=== PATIENT | female | born 1950 | race Caucasian/White ===

== ENCOUNTER 2021-05-25 14:38 | Emergency (ER) | payer MEDICARE, SELFPAY ==
[2021-05-25 14:41] VITALS: BP 131/71; PULSE 84; RESP 16; TEMP 37.2; O2SAT 94
--- NOTE | 2021-05-25 14:54 | RAD_ITS ---
STUDY: X-RAY CHEST REASON FOR EXAM: Female, 70 years old. Cough, shortness of breath and fever. TECHNIQUE: Single AP portable view of the chest. COMPARISON: None. FINDINGS: EKG electrodes are seen. Hyperinflation. Focal infiltrate is seen in the lateral aspect of the left lower lobe. There is no demonstrated pleural abnormality. Normal size heart. Normal mediastinum and galen. Normal visualized pulmonary arteries. There is atherosclerotic tortuosity of the aortic arch and descending thoracic aorta. There are diffuse degenerative changes of the visualized thoracic spine. Normal visualized ribs, clavicles, and shoulders. There is no demonstrated abnormality of the visualized soft tissue structures of the upper abdomen. RAD/Chest 1 View (Portable) IMPRESSION: Focal infiltrate is seen in the lateral aspect of the left lower lobe. Electronically Signed: Jake Gould MD at 15:07 EST , Service support ,
[2021-05-25 14:59] VITALS: O2SAT 94
--- NOTE | 2021-05-25 15:30 | EDS_ITS ---
HPI History of Present Illness Chief Complaint: Cough Detail of Chief Complaint: Cough Informant: patient Narrative Narrative: Patient presents to the emergency department complaint of a cough that started 8 days ago. Patient complains of some shortness of breath with ambulation. Patient has history of asthma and has been using her inhaler. She denies any chest pain. She denies any Covid exposures. Patient has not been vaccinated against COVID-19. She denies recent travel or surgery. She has had fever up to 101 today. She denies loss of taste or smell. She denies body aches. She denies vomiting or diarrhea. [facility] Medical History (Updated 05/25/21 @ 15:[address] Ramin Evangelista, ) Asthma Home Medications benzonatate 200 mg PO TID PRN #20 cap 05/25/21 [Rx Last Taken Unknown] prednisone 20 mg PO BID #10 tab 05/25/21 [Rx Last Taken Unknown] Allergy/AdvReac Type Severity Reaction Status Date / Time cortisone AdvReac NEEDS Verified 05/25/21 14:43 FOLLOW-UP Social History Smoking Status: Never smoker ROS ROS ED Constitutional Constitutional ED: Reports systems reviewed and no addt'l complaints, except as documented and fever(s); Denies body ache(s), change in weight or chills Eyes Eyes: Denies acute decrease in peripheral vision, change in vision, double vision or loss of vision ENT ENT ED: Reports none; Denies ear pain, lip swelling, loss taste/smell, neck pain, otalgia or sore throat Cardiovascular Cardiovascular: Reports none; Denies abdominal pain, chest pain with activity, leg edema, lightheadedness, palpitations, rapid heart rate or syncope Respiratory/Chest Respiratory/Chest: Reports none, cough and dyspnea; Denies change in mental status, dry cough, hemoptysis, shortness of breath at rest or shortness of breath with exertion Gastrointestinal Gastrointestinal: Reports none; Denies abdominal pain, change in stool character, diarrhea, hematemesis, hematochezia, melena, rectal bleeding or vomiting Genitourinary Genitourinary ED: Reports none; Denies abdominal discomfort, anuria, dysuria, genital pain or polyuria Musculoskeletal Musculoskeletal: Reports none; Denies arthralgias, back pain, difficulty walking, extremity pain, muscle weakness or myalgias Integumentary Reports none; Denies abscess or rash Neurologic Neurologic: Reports none; Denies abnormal gait, confusion, focal weakness, frequent falls, headache(s), loss of vision, numbness, paresthesias, radicular pain, vertigo or weakness Psychiatric Psychiatric: Reports systems reviewed and no addt'l complaints, except as documented and none; Denies behavioral changes, confusion, difficulty concentrating, hallucinations, suicidal ideation, tactile hallucinations or visual hallucinations Endocrine Endocrinology: Denies none, cold intolerance, excessive sweating, fatigue or heat intolerance Hematologic/Lymphatic Hematologic/Lymphatic: Reports none; Denies anemia, easy bleeding or easy bruising Allergic/Immunologic Allergic/Immunologic ED: Denies as per HPI, none, lip swelling, mouth swelling, throat swelling, tongue swelling or hives EXAM Physical Exam Const Vital Signs: 05/25/21 14:41 05/25/21 14:59 Temperature 99.0 F Temperature Source Temporal Pulse Rate 84 Respiratory Rate 16 Respiratory Effort Normal Non-Labored Respiratory Depth Normal Respiratory Pattern Normal Blood Pressure 131/71 H Blood Pressure Mean 91 Pulse Ox 94 Oxygen Delivery Method Room Air Room Air Positive well nourished and well developed General Appearance ED: well developed and NAD HEENT Reports TM's clear and moist mucous membranes normocephalic and atraumatic; Negative for trauma or tenderness Tympanic Membrane ED: Yes TM's clear Eyes PERRL and EOMs intact bilaterally General Eye ED: Negative for pale conjunctiva or scleral icterus Neck no lymphadenopathy, supple and no JVD General: Negative for tenderness Chest Wall inspection of chest normal and palpation of chest normal Chest: Negative for tenderness Resp normal respiratory effort and clear to auscultation bilaterally Resp Narrative: Faint expiratory wheezes bilaterally. No extensor muscles or retractions. No conversational dyspnea. Effort and Inspection: Negative for respiratory distress or pain with movement Auscultation: wheezes; Negative for rhonchi or diminished lung sounds Cardio regular rate, regular rhythm, S1 normal heart sound, S2 normal heart sound and n o murmurs Peripheral Pulses: pulses 2+ throughout GI normal to inspection, nondistended, normoactive bowel sounds, soft to palpation, non-tender, non-distended and no masses Back/Spine no CVA tenderness and no thoracic nor lumbar tenderness Extremity normal to inspection General Extremety ED: Negative for edema General Extremity: Negative for edema Neuro oriented x3, CN's II-XII intact bilaterally, no sensory deficits noted and gait normal Sensorium / Orientation: awake, alert, oriented to person, oriented to place and oriented to time Motor Exam: strength 5/5 throughout and strength abnormal Psych mental status grossly normal Skin no rashes or lesions noted and no wounds MDM MDM MDM Narrative Medical decision making narrative: Patient has COVID-19. Her chest x-ray showed focal infiltrate in the left lower lobe and I suspect this is likely Covid related. Patient has stable vital signs otherwise and is in no respiratory distress. I do not feel she needs any other diagnostics at this time. Patient will be given a prescription for Tessalon Perles as well as prednisone to help with wheezing related to her asthma. I do not feel antibiotics are indicated. Patient will not be a monoclonal antibody infusion candidate given that by next Friday she will be past the 10-day kong. Patient will be ambulated in the department to make sure her O2 sat does not drop and I feel she can safely be discharged home. Patient will be advised to return if increasing shortness of breath or condition should worsen anyway. Lab Data Attestation: I reviewed the patient's lab results. Radiography Diagnostic Testing: Clinical Impression(s) from Imaging Studies Chest X-Ray 05/25/21 14:54 IMPRESSION: Focal infiltrate is seen in the lateral aspect of the left lower lobe. Electronically Signed: Jake Gould MD at 15:07 EST , Service support , Discharge Plan Triage Chief Complaint: Cough ED Provider: Ramin Evangelista Dx/Rx/DC Orders Clinical Impression: COVID-19 Instructions: Caring for Someone Who Has COVID-19 Prescriptions: New benzonatate 200 mg capsule 200 mg PO TID PRN (Reason: cough) Qty: 20 RF: 0 prednisone 20 mg tablet 20 mg PO BID Qty: 10 RF: 0 Primary Care Provider: Ken Quarles Referrals: Ken Quarles MD [Primary Care Provider] - 5-7 Days Disposition Disposition: Home, Self Care
[2021-05-25 15:41] VITALS: O2SAT 94
== END 2021-05-25 16:04 | disposition home or self-care (01) ==
LOC: ED 16:04
PROVIDERS: Emergency Provider Emergency Medicine; PCP Internal Medicine
DX: U07.1 COVID-19 (principal); J45.909 Unspecified asthma, uncomplicated
CPT/HCPCS: 71045; 87426; 99282; A4216

== ENCOUNTER 2021-05-27 12:19 | Emergency (ER) | payer MEDICARE, SELFPAY ==
[2021-05-27] VITALS (7 sets, daily range): BP systolic 140–154; BP diastolic 70–78; PULSE 53–72; RESP 15–24; TEMP 36; O2SAT 86–97; BMI 29.0
--- NOTE | 2021-05-27 12:36 | RAD_ITS ---
STUDY: X-RAY CHEST REASON FOR EXAM: Female, 70 years old. chest pain day 10 Covid chest pressure TECHNIQUE: Frontal portable view of the chest COMPARISON: 25 May 2021 FINDINGS: There are scattered low density predominantly peripheral opacities. There is no pneumothorax, pulmonary edema or cardiomegaly. Lungs are moderately hyperinflated. RAD/Chest 1 View (Portable) IMPRESSION: Worsening Covid pneumonia. Emphysema. Electronically Signed: Bria Zamora MD at 13:53 EST Tel , Service support ,
--- NOTE | 2021-05-27 12:36 | EKG12_ITS ---
Test Reason : CP Blood Pressure : / mmHG Vent. Rate : 064 BPM Atrial Rate : 064 BPM P-R Int : 138 ms QRS Dur : 086 ms QT Int : 380 ms P-R-T Axes : 052 055 031 degrees QTc Int : 392 ms Normal sinus rhythm Nonspecific T wave abnormality Confirmed by MENDOZA JACKMAN, BHUPENDRA ([id number]), web content editor ZAHIRA CONDON ([id number]) on 05/30/2021 11:11:58 AM Referred By: JOHN Confirmed By:BHUPENDRA DONALDSON MD
[2021-05-27 13:10] LABS: Absolute Lymphocyte Count 0.71 X10^3/uL (0.83-4.51); Absolute Neutrophil Count 8.1 X10^3/uL (2.0-7.7); Basophil# 0.02 X10^3/uL; Basophil% 0.2 % (0-1); Hematocrit 40.5 % (37-47); Hemoglobin 13.3 g/dL (12.0-15.0); Lymphocyte # 0.71 X10^3/ul (0.83-4.51); Lymphocyte % 7.3 % (19-41); Mean Corp Hgb Conc 32.8 g/dL (32-36); Mean Corpuscular Hgb 29.7 pg (27.0-32.0); Mean Corpuscular Volume 90.4 fL (81-99); Mean Platelet Vol. 9.2 fl (6.2-12.0); Monocyte# 0.74 X10^3/uL; Monocyte% 7.6 % (0-10); NRBC Flagged by Analyzer 0 % (0-5); Neutrophil # 8.11 X10^3/uL (2.7-7.7); Neutrophil % 83.4 % (47-70); Platelet Count 241 K/mm3 (150-450); RBC Distribution Width CV 12.2 % (11.6-14.6); RBC Distribution Width SD 40.3 fl (35.1-43.9); Red Blood Count 4.48 M/mm3 (4.2-5.4); White Blood Count 9.7 K/mm3 (4.4-11.0)
[2021-05-27 13:14] LABS: International Normalized Ratio 1.1; Prothrombin Time (Protime)PT. 13.3 SECONDS (11.7-14.9)
[2021-05-27 13:17] LABS: Anion Gap 6 (5-15); BUN 17 mg/dL (7-18); BUN/Creat Ratio 20.4 RATIO (10-20); Calcium,Total 9.3 mg/dL (8.5-10.1); Chloride 108 mmol/L (98-107); Creatinine, Serum 0.83 mg/dL (0.55-1.02); EST Glomerular Filtration Rate 72 mL/min (>60); Est Glom Filt Rate - Afr Amer 87 mL/min (>60); Glucose 120 mg/dL (74-106); Potassium 3.5 mmol/L (3.5-5.1); Sodium Level 142 mmol/L (136-145); Troponin-I HS 6 pg/mL (3.0-54.0)
--- NOTE | 2021-05-27 13:53 | NURSING ---
NO OLD EKGS
--- NOTE | 2021-05-27 14:06 | EDS_ITS ---
HPI History of Present Illness Chief Complaint: Shortness of Breath Detail of Chief Complaint: Shortness of breath Informant: patient Narrative Narrative: Patient presents to the emergency department with complaint of shortness of breath that has been worsening over the last several days. Patient was seen by myself in the emergency department 2 days ago and diagnosed with COVID-19. Patient's had symptoms for about 10 days. Patient was started on prednisone 2 days ago. Patient states that she is been monitoring her O2 sat at home and at night at times dropped down to 85%. She complains of worsening shortness of breath and fatigue. She had a dry cough. No fevers. She denies history of PE or DVT. She does describe some pain in her chest intermittently with deep breath. Patient has not been vaccinated against COVID-19. [facility] Medical History (Updated 05/27/21 @ 16:[address] Ramin Evangelista, ) Asthma BiPAP (biphasic positive airway pressure) dependence Chronic cystitis Depression GERD (gastroesophageal reflux disease) Hypertension Non-smoker Sleep apnea Home Medications benzonatate 200 mg PO TID PRN #20 cap 05/25/21 [Rx Last Taken Unknown] prednisone 20 mg PO BID #10 tab 05/25/21 [Rx Last Taken Unknown] dexamethasone [Decadron] 6 mg PO DAILY #3 tab 05/27/21 [Rx Last Taken Unknown] Allergy/AdvReac Type Severity Reaction Status Date / Time No Known Allergies Allergy Verified 05/27/21 12:24 Surgical History (Updated 05/27/21 @ 13:47 by Aimee Guzman) History of cholecystectomy Social History Smoking Status: Never smoker [facility] ED Constitutional Constitutional ED: Reports systems reviewed and no addt'l complaints, except as documented; Denies body ache(s), change in weight or chills Eyes Eyes: Denies acute decrease in peripheral vision, change in vision, double vision or loss of vision ENT ENT ED: Reports none; Denies ear pain, lip swelling, loss taste/smell, neck pain, otalgia or sore throat Cardiovascular Cardiovascular: Reports none and chest pain; Denies abdominal pain, chest pain with activity, leg edema, lightheadedness, palpitations, rapid heart rate or syncope Respiratory/Chest Respiratory/Chest: Reports none, cough and dyspnea; Denies change in mental status, dry cough, hemoptysis, shortness of breath at rest or shortness of breath with exertion Gastrointestinal Gastrointestinal: Reports none; Denies abdominal pain, change in stool character, diarrhea, hematemesis, hematochezia, melena, rectal bleeding or vomiting Genitourinary Genitourinary ED: Reports none; Denies abdominal discomfort, anuria, dysuria, genital pain or polyuria Musculoskeletal Musculoskeletal: Reports none and myalgias; Denies arthralgias, back pain, difficulty walking, extremity pain or muscle weakness Integumentary Reports none; Denies abscess or rash Neurologic Neurologic: Reports none; Denies abnormal gait, confusion, focal weakness, frequent falls, headache(s), loss of vision, numbness, paresthesias, radicular pain, vertigo or weakness Psychiatric Psychiatric: Reports systems reviewed and no addt'l complaints, except as documented and none; Denies behavioral changes, confusion, difficulty concentrating, hallucinations, suicidal ideation, tactile hallucinations or visual hallucinations Endocrine Endocrinology: Denies none, cold intolerance, excessive sweating, fatigue or heat intolerance Hematologic/Lymphatic Hematologic/Lymphatic: Reports none; Denies anemia, easy bleeding or easy bruising Allergic/Immunologic Allergic/Immunologic ED: Denies as per HPI, none, lip swelling, mouth swelling, throat swelling, tongue swelling or hives EXAM Physical Exam Const Vital Signs: 05/27/21 12:20 05/27/21 13:42 05/27/21 13:45 Temperature 96.8 F L Temperature Source Temporal Pulse Rate 72 62 60 Respiratory Rate 20 H 15 17 Respiratory Effort Blood Pressure 154/78 H 150/70 H 145/73 H Blood Pressure Mean 103 96 97 Pulse Ox 93 96 93 Oxygen Delivery Method Room Air Room Air Room Air Oxygen Flow Rate (L/min) 05/27/21 13:49 05/27/21 15:15 05/27/21 16:12 Temperature Temperature Source Pulse Rate 60 Respiratory Rate 19 H Respiratory Effort Short of Breath Blood Pressure 145/70 H Blood Pressure Mean 95 Pulse Ox 93 Oxygen Delivery Method Oxygen Flow Rate (L/min) 2 Positive well nourished and well developed General Appearance ED: well developed and NAD HEENT Reports TM's clear and moist mucous membranes normocephalic and atraumatic; Negative for trauma or tenderness Tympanic Membrane ED: Yes TM's clear Eyes PERRL and EOMs intact bilaterally General Eye ED: Negative for pale conjunctiva or scleral icterus Neck no lymphadenopathy, supple and no JVD General: Negative for tenderness Chest Wall inspection of chest normal and palpation of chest normal Chest: Negative for tenderness Resp normal respiratory effort and clear to auscultation bilaterally Resp Narrative: Faint expiratory wheezes noted bilaterally. No extensor muscles or retractions. Effort and Inspection: Negative for respiratory distress or pain with movement Auscultation: wheezes; Negative for rhonchi or diminished lung sounds Cardio regular rate, regular rhythm, S1 normal heart sound, S2 normal heart sound and no murmurs Peripheral Pulses: pulses 2+ throughout GI normal to inspection, nondistended, normoactive bowel sounds, soft to palpation, non-tender, non-distended and no masses Back/Spine no CVA tenderness and no thoracic nor lumbar tenderness Extremity normal to inspection General Extremety ED: Negative for edema General Extremity: Negative for edema Neuro oriented x3, CN's II-XII intact bilaterally, no sensory deficits noted and gait normal Sensorium / Orientation: awake, alert, oriented to person, oriented to place and oriented to time Motor Exam: strength 5/5 throughout and strength abnormal Psych mental status grossly normal Skin no rashes or lesions noted and no wounds MDM MDM MDM Narrative Medical decision making narrative: Lab work-up unremarkable. CTA chest was negative for PE but did show bilateral Covid pneumonia. On room air patient did drop her O2 sat to 86% with ambulation however with ambulation with nasal cannula O2 her O2 sat maintained above 92%. Patient is not having any acute respiratory difficulty. I feel she can be discharged to home with oxygen given ongoing bed shortages and patient will be advised to return if worsening dyspnea or condition should worsen anyway. Lab Data Attestation: I reviewed the patient's lab results. Labs: Laboratory Results - last 24 hr 05/27/21 05/27/21 05/27/21 12:33 12:55 12:55 WBC 9.7 RBC 4.48 Hgb 13.3 Hct 40.5 MCV 90.4 MCH 29.7 MCHC 32.8 RDW Std Deviation 40.3 RDW Coeff of Heidy 12.2 Plt Count 241 MPV 9.2 Immature Gran % (Auto) 1.500 H Neut % (Auto) 83.4 H Lymph % (Auto) 7.3 L [place] % (Auto) 7.6 Eos % (Auto) 0.0 Baso % (Auto) 0.2 Absolute Neuts (auto) 8.1 H Absolute Lymphs (auto) 0.71 L Nucleated RBC % 0 PT 13.3 INR 1.1 D-Dimer Quant (PE/DVT) 1.87 H* Sodium Potassium Chloride Carbon Dioxide Anion Gap BUN Creatinine Estim Creat Clear Calc Est GFR (MDRD) Af Amer Est GFR (MDRD) Non-Af BUN/Creatinine Ratio Glucose Calcium Troponin I High Sens 05/27/21 12:55 WBC RBC Hgb Hct MCV MCH MCHC RDW Std Deviation RDW Coeff of Heidy Plt Count MPV Immature Gran % (Auto) Neut % (Auto) Lymph % (Auto) [place] % (Auto) Eos % (Auto) Baso % (Auto) Absolute Neuts (auto) Absolute Lymphs (auto) Nucleated RBC % PT INR D-Dimer Quant (PE/DVT) Sodium 142 Potassium 3.5 Chloride 108 H Carbon Dioxide 28.0 Anion Gap 6 BUN 17 Creatinine 0.83 Estim Creat Clear Calc 58.20 Est GFR (MDRD) Af Amer 87 Est GFR (MDRD) Non-Af 72 BUN/Creatinine Ratio 20.4 H Glucose 120 H Calcium 9.3 Troponin I High Sens 6 Radiography Diagnostic Testing: Clinical Impression(s) from Imaging Studies Chest X-Ray 05/27/21 12:36 IMPRESSION: Worsening Covid pneumonia. Emphysema. Electronically Signed: Bria Zamora MD at 13:53 EST Tel , Service support , Chest CTA 05/27/21 14:42 IMPRESSION: 1. No pulmonary embolism. 2. Covid pneumonia. Electronically Signed: Bria Zamora MD at 16:15 EST Tel , Service support , Discharge Plan Triage Chief Complaint: Shortness of Breath ED Provider: Ramin Evangelista Dx/Rx/DC Orders Clinical Impression: COVID-19 Instructions: Caring for Someone Who Has COVID-19 Prescriptions: New dexamethasone [Decadron] 6 mg tablet 6 mg PO DAILY Qty: 3 RF: 0 No Action benzonatate 200 mg capsule 200 mg PO TID PRN (Reason: cough) Qty: 20 RF: 0 prednisone 20 mg tablet 20 mg PO BID Qty: 10 RF: 0 Primary Care Provider: Ken Quarles Referrals: Ken Quarles MD [Primary Care Provider] - 3-5 Days Disposition Disposition: Home, Self Care
[2021-05-27 14:41] LABS: D-Dimer Quantitative (DVT/PE) 1.87 FEU/ug/m (0.27-0.49)
--- NOTE | 2021-05-27 14:42 | CT_ITS ---
STUDY: CTA CHEST REASON FOR EXAM: Female, 70 years old. Dyspnea elevated d-dimer and 10 days of Covid RADIATION DOSAGE (If Supplied By Facility): CTDIvol = ( 6.38 ) mGy, DLP = ( 244.22 ) mGycm TECHNIQUE: The examination was performed with the intravenous administration of IV 100mL Isovue-370. Post-processing of the angiographic images was performed, with multiplanar reformation and 3D reconstruction. Individualized dose optimization techniques were used for this CT. COMPARISON: None. FINDINGS: There is no acute or chronic pulmonary embolism. Aorta is of normal caliber. There is an acute moderately severe Covid pneumonia with multiple intermediate density dominantly peripheral and basal groundglass opacities. Airways are patent. Lungs are mildly emphysematous. There is no pneumothorax, pulmonary edema or pleural effusions. Mediastinal contents are normal. There are degenerative changes in the thoracic spine with lower lumbar intervertebral herniations into the superior endplate. Canal is patent. Abdominal structures are unremarkable. CT/CTA Chest W/WO Contrast IMPRESSION: 1. No pulmonary embolism. 2. Covid pneumonia. Electronically Signed: Bria Zamora MD at 16:15 EST Tel , Service support ,
--- NOTE | 2021-05-27 18:04 | ED.RN ---
Upon entering patients room to update them on [facility] to confirm home O2 set up, the door was open and the patient and portable tank were gone.
== END 2021-05-27 18:04 | disposition home or self-care (01) ==
PROVIDERS: Emergency Provider Emergency Medicine; PCP Internal Medicine
DX: U07.1 COVID-19 (principal); J12.82 Pneumonia due to coronavirus disease 2019; I10 Essential (primary) hypertension; J45.909 Unspecified asthma, uncomplicated; K21.9 Gastro-esophageal reflux disease without esophagitis; G47.30 Sleep apnea, unspecified; F32.A Depression, unspecified
CPT/HCPCS: 71045; 71275; 80048; 84484; 85025; 85379; 85610; 93005; 99284; Q9967; A4216

== ENCOUNTER 2021-06-04 03:56 | Inpatient (IN) | payer MEDICARE, SELFPAY ==
[2021-06-04] VITALS (13 sets, daily range): BP systolic 98–132; BP diastolic 54–67; PULSE 63–79; RESP 18–23; TEMP 36.5–38; O2SAT 88–98; BMI 30.3; BMI 29.7
--- NOTE | 2021-06-04 04:16 | RAD_ITS ---
STUDY: X-RAY CHEST REASON FOR EXAM: Female, 70 years old. chest pain TECHNIQUE: AP COMPARISON: 05/27/2021 FINDINGS: The lungs demonstrate persistent left greater than right subpleural streaky opacities. There is no demonstrated pleural abnormality. Normal size heart. Normal mediastinum and galen. Normal visualized pulmonary arteries. Normal visualized aortic arch and descending thoracic aorta. There are diffuse degenerative changes of the visualized thoracic spine. Normal visualized ribs, clavicles, and shoulders. There is no demonstrated abnormality of the visualized soft tissue structures of the upper abdomen. RAD/Chest 1 View (Portable) IMPRESSION: Persistent streaky subpleural left greater than right lung opacities likely due to prior detected pneumonia. Electronically Signed: Darnell Ellis MD at 4:36 EST Tel , Service support ,
--- NOTE | 2021-06-04 04:16 | CT_ITS ---
STUDY: CTA CHEST REASON FOR EXAM: Female, 70 years old. PE RADIATION DOSAGE (If Supplied By Facility): CTDIvol = ( 11.16 ) mGy, DLP = ( 426.24 ) mGycm TECHNIQUE: The examination was performed with the intravenous administration of IV 100mL Isovue-370. Post-processing of the angiographic images was performed, with multiplanar reformation and 3D reconstruction. Individualized dose optimization techniques were used for this CT. COMPARISON: CTA chest from 05/27/2021 FINDINGS: Interval development of intraluminal filling defects within the distal right main pulmonary artery extending into segmental and subsegmental branches of the right lower, upper and middle lobes. Normal thoracic aorta and visualized great vessels. There is no demonstrated aortic dissection. Normal heart and pericardium. Normal mediastinum. Normal hilar regions. Normal visualized trachea and bronchi. The lungs demonstrate bilateral streaky subpleural airspace opacities. Normal pleura. Normal chest wall structures. There are degenerative changes of lower thoracic spine. Normal visualized upper abdomen. CT/CTA Chest W/WO Contrast IMPRESSION: Interval development of acute pulmonary emboli involving the right lung pulmonary arteries. Multiple bilateral streaky subpleural lung opacities consistent with evolving pneumonia which is more groundglass in density on prior study. Electronically Signed: Darnell Ellis MD at 5:45 EST Tel , Service support ,
--- NOTE | 2021-06-04 04:16 | EKG12_ITS ---
Test Reason : DYSRYTHMIA Blood Pressure : / mmHG Vent. Rate : 058 BPM Atrial Rate : 058 BPM P-R Int : 140 ms QRS Dur : 082 ms QT Int : 420 ms P-R-T Axes : 039 033 071 degrees QTc Int : 412 ms Sinus bradycardia Otherwise normal ECG Confirmed by GIORGI JACKMAN, ELZA ([id number]), loan expeditor ZAHIRA CONDON ([id number]) on 06/04/2021 11:36:20 AM Referred By: LEWIS Confirmed By:ELZA RAND MD
--- NOTE | 2021-06-04 04:18 | EDS_ITS ---
HPI History of Present Illness Chief Complaint: Back Informant: patient and family Narrative Narrative: Patient presents with right posterior chest pain. It started last evening but has gotten progressively worse. It does hurt to breathe. It hurts slightly to move. She does still have a cough from Covid. No hemoptysis. No leg pain. No prior history of DVT or PE. She did have a CT angiogram about 8 days ago. However, she was having dyspnea then but she was not having this pain. Patient started with Covid symptoms on approximately the third of this month. She was seen here on the and . She was sent home on oxygen. She is currently on 3-1/2 L. She states she seemed to be getting better but then seemed to be getting worse again over the last few days. Her biggest issue is the weakness and shortness of breath. If she takes the oxygen off at all she dropped to the 80s immediately. She does have asthma but she has not really been wheezing. She has not had nausea and vomiting. She has been eating well. [facility] Medical History Asthma BiPAP (biphasic positive airway pressure) dependence Chronic cystitis Depression GERD (gastroesophageal reflux disease) Hypertension Non-smoker Sleep apnea Home Medications atenolol 50 mg PO DAILY 06/04/21 [History Last Taken Unknown] citalopram 20 mg PO DAILY 06/04/21 [History Last Taken Unknown] hydroxyzine HCl [Atarax] 25 mg PO DAILY 06/04/21 [History Last Taken Unknown] montelukast [Singulair] 10 mg PO QHS 06/04/21 [History Last Taken Unknown] nitrofurantoin 100 mg PO DAILY 06/04/21 [History Last Taken Unknown] pantoprazole [Protonix] 40 mg PO DAILY 06/04/21 [History Last Taken Unknown] triamterene-hydrochlorothiazid [Dyazide] 1 cap PO DAILY 06/04/21 [History Last Taken Unknown] Allergy/AdvReac Type Severity Reaction Status Date / Time No Known Allergies Allergy Verified 06/04/21 03:58 Surgical History History of cholecystectomy Social History Smoking Status: Never smoker ROS ROS ED Constitutional Constitutional ED: Reports subjective Eyes Eyes: Denies blurry vision or change in vision ENT ENT ED: Denies rhinorrhea or sore throat Cardiovascular Cardiovascular: Reports chest pain; Denies palpitations Respiratory/Chest Respiratory/Chest: Reports cough, dyspnea and dyspnea on exertion; Denies sputum Gastrointestinal Gastrointestinal: Denies abdominal pain, nausea or vomiting Genitourinary Genitourinary ED: Denies dysuria Musculoskeletal Musculoskeletal: Reports other Details: Pain in right posterior chest as in hi story of present illness. Integumentary Denies rash Neurologic Neurologic: Denies headache(s) Endocrine Endocrinology: Denies polydipsia or polyuria Allergic/Immunologic Allergic/Immunologic ED: Denies mouth swelling or urticaria EXAM Physical Exam Const Vital Signs: 06/04/21 03:59 06/04/21 04:02 06/04/21 04:27 Temperature 97.7 F L 97.7 F L Temperature Source Temporal Temporal Pulse Rate 66 66 Respiratory Rate 18 18 Blood Pressure 129/62 H 129/62 H Blood Pressure Mean 84 84 Pulse Ox 90 90 Oxygen Delivery Method Room Air Room Air Nasal Cannula Oxygen Flow Rate (L/min) 2 06/04/21 05:17 Temperature 98.0 F Temperature Source Temporal Pulse Rate 64 Respiratory Rate 23 H Blood Pressure 127/66 H Blood Pressure Mean 86 Pulse Ox 98 Oxygen Delivery Method Nasal Cannula Oxygen Flow Rate (L/min) 3 Patient looks like she is in some discomfort. But she is awake alert. Oxygen saturations are good good on her 3-1/2 L. She is about 92% while I am in the room. Positive well nourished and well developed General Appearance ED: well developed; Negative for cyanotic or diaphoretic HEENT Reports moist mucous membranes Eyes General Eye ED: Negative for pale conjunctiva Neck no JVD Chest Wall inspection of chest normal Chest Narrative: I see no vesicles or rashes. She has pain at the right posterior chest wall. This is clearly up in the chest wall and not down in the flank. He had is not really tender to palpate. It is a little bit sore if she moves though. Resp No normal respiratory effort Resp Narrative: Slight increased respiratory effort. She does have some rhonchi mostly at the bases. I do not hear wheezing. I do not hear asymmetry of breath sounds. There is no subcutaneous air felt. Auscultation: rhonchi Cardio regular rate, regular rhythm and no murmurs GI normal to inspection, nondistended, normoactive bowel sounds and non-tender Palpation: soft Back/Spine no CVA tenderness Back/Spine Narrative: Her pain is higher than the typical CVA area. Extremity normal to inspection General Extremety ED: Negative for edema or tenderness General Extremity: Negative for edema Neuro oriented x3 Sensorium / Orientation: alert Psych mental status grossly normal Skin no rashes or lesions noted and no wounds MDM MDM MDM Narrative Medical decision making narrative: Patient's labs show a high white count. However, her last steroid dose was just yesterday. Her potassium was high at 6.3 but was hemolyzed and her EKG does not show signs of hyperkalemia. She did have a slightly high BUN to creatinine ratio. Troponin was negative. Chest x- ray shows persistent streaking changes in lung opacities likely related to her Covid pneumonia. I looked at her CTA. I am awaiting the final reading. However, she does appear to have moderate clot burden in the right lower and upper lung as well as in the left lower. She has one bit of clot running up the right main pulmonary artery. Does not look quite like a saddle embolus. However, with her symptoms, worsening hypoxia and the CT I did start Eliquis. Because she desaturated down to the 70% range on 3-1/2 L we will bring her in the hospital. Her prescription at home is for 2 L. I think with her significant pain, worsening hypoxia, history of asthma, Covid recovery, and pulmonary embolus this patient will not do well as an outpatient initially. I think we need to get her stabilized and find out what her oxygen needs are. Lab Data Attestation: I reviewed the patient's lab results. Labs: Laboratory Results - last 24 hr 06/04/21 06/04/21 04:10 04:10 WBC 18.9 H RBC 4.55 Hgb 13.5 Hct 41.0 MCV 90.1 MCH 29.7 MCHC 32.9 RDW Std Deviation 42.1 RDW Coeff of Heidy 12.8 Plt Count 227 MPV 9.1 Neut % (Auto) Not Reportable Sodium 135 L Potassium 6.3 H* Chloride 103 Carbon Dioxide 27.0 Anion Gap 5 BUN 28 H Creatinine 0.88 Estim Creat Clear Calc 52.76 Est GFR (MDRD) Af Amer 82 Est GFR (MDRD) Non-Af 68 BUN/Creatinine Ratio 32.0 H Glucose 94 Calcium 8.4 L Troponin I High Sens < 3 L Radiography Diagnostic Testing: Clinical Impression(s) from Imaging Studies Chest CTA 06/04/21 04:16 IMPRESSION: Interval development of acute pulmonary emboli involving the right lung pulmonary arteries. Multiple bilateral streaky subpleural lung opacities consistent with evolving pneumonia which is more groundglass in density on prior study. Electronically Signed: Darnell Ellis MD at 5:45 EST Tel , Service support , Chest X-Ray 06/04/21 04:16 IMPRESSION: Persistent streaky subpleural left greater than right lung opacities likely due to prior detected pneumonia. Electronically Signed: Darnell Ellis MD at 4:36 EST Tel , Service support , EKG Initial EKG: Comments: EKG done for right-sided posterior chest wall pain and dyspnea. EKG read by me shows sinus rhythm with slightly bradycardic rate at 58. No ectopy. No acute ST elevation or depression. ID interval, QRS duration and QTc normal. Discharge Plan Dx/Rx/DC Orders Clinical Impression: Pulmonary embolism, COVID-19, Acute on chronic respiratory failure with hypoxia Disposition Disposition: Acute Care Hospital [facility] Discharge Date/Time: 06/04/21 05:55
[2021-06-04] MEDS: Ondansetron 4 MG/2 ML Vial IV (04:23)
[2021-06-04] MEDS: Morphine 4 MG/ML Syringe IV ×2 (04:23→05:40)
[2021-06-04 04:27] LABS: Hemoglobin 13.5 g/dL (12.0-15.0); Mean Corp Hgb Conc 32.9 g/dL (32-36); Mean Corpuscular Hgb 29.7 pg (27.0-32.0); Mean Corpuscular Volume 90.1 fL (81-99); Mean Platelet Vol. 9.1 fl (6.2-12.0); POSITIVE COUNT YES; POSITIVE DIFFERENTIAL YES; POSITIVE MORPHOLOGY YES; Platelet Count 227 K/mm3 (150-450); RBC Distribution Width CV 12.8 % (11.6-14.6); RBC Distribution Width SD 42.1 fl (35.1-43.9); Red Blood Count 4.55 M/mm3 (4.2-5.4); White Blood Count 18.9 K/mm3 (4.4-11.0)
[2021-06-04 04:52] LABS: Differential Indicated MANUAL DIFF
[2021-06-04 05:02] LABS: Anion Gap 5 (5-15); BUN 28 mg/dL (7-18); Calcium,Total 8.4 mg/dL (8.5-10.1); Chloride 103 mmol/L (98-107); Creatinine, Serum 0.88 mg/dL (0.55-1.02); EST Glomerular Filtration Rate 68 mL/min (>60); Est Glom Filt Rate - Afr Amer 82 mL/min (>60); Estimated Creatinine Clearance 52.76 ml/min; Glucose 94 mg/dL (74-106); Potassium 6.3 mmol/L (3.5-5.1); Sodium Level 135 mmol/L (136-145); Troponin-I HS < 3 pg/mL (3.0-54.0)
[2021-06-04] MEDS: APIXABAN 5 MG TABLET 10 MG PO (05:41)
--- NOTE | 2021-06-04 05:55 | HP.PCM.HOS_ITS ---
HPI - General General Date of Admission: 06/04/21 Date of Service: 06/04/21 Chief Complaint: Shortness of breath HPI Narrative GAIL TALAVERA, is a 70 F who presents to the urgency room at [facility] with a chief complaint of increased shortness of breath over the last 2 days, she has been on oxygen since 27 May secondary to COVID-19 pneumonia, she just recently finished her dexamethasone course. Patient was first seen in the emergency room this month on May 25, she was diagnosed at that time with having COVID-19. At that time, it was thought that her symptoms started 8 days prior (May 17, 2021), due to time limitation, patient did not receive monoclonal antibody drugs. Patient's daughter states that the patient has been turning up her oxygen ever since it was prescribed on May 27, she stated that today her mother complained of chest discomfort when she coughed or took in a deep breath. Work-up in the emergency room included labs which showed an elevated white blood cell count at 18.9, patient's blood was hemolyzed for her chemistry profile and therefore showed a potassium at 6.3. Patient's CTA of her chest showed multiple pulmonary emboli in the right lung. Patient required 3 L via nasal cannula at rest, she required increased oxygen on ambulation. Patient will be placed into observation status due to her increased oxygen requirement, it may be necessary to represcribe the patient's oxygen at a higher rate when she is discharged home. Patient was started on Eliquis in the emergency room. She will be given IV narcotics for analgesia. If patient remains stable, she could be discharged home tomorrow. [facility] Medical History Asthma BiPAP (biphasic positive airway pressure) dependence Chronic cystitis Depression GERD (gastroesophageal reflux disease) Hypertension Non-smoker Sleep apnea Home Medications atenolol 50 mg PO DAILY 06/04/21 [History Last Taken Unknown] citalopram 20 mg PO DAILY 06/04/21 [History Last Taken Unknown] hydroxyzine HCl [Atarax] 25 mg PO DAILY 06/04/21 [History Last Taken Unknown] montelukast [Singulair] 10 mg PO QHS 06/04/21 [History Last Taken Unknown] nitrofurantoin 100 mg PO DAILY 06/04/21 [History Last Taken Unknown] pantoprazole [Protonix] 40 mg PO DAILY 06/04/21 [History Last Taken Unknown] triamterene-hydrochlorothiazid [Dyazide] 1 cap PO DAILY 06/04/21 [History Last Taken Unknown] Allergy/AdvReac Type Severity Reaction Status Date / Time No Known Allergies Allergy Verified 06/04/21 03:58 Surgical History History of cholecystectomy Social History Smoking Status: Never smoker ROS Constitutional Constitutional: Denies anorexia, change in weight, fever(s), night sweats or weakness Eyes Eyes: Denies blurry vision, change in vision, discharge from eye(s) or eye pain Cardiovascular Cardiovascular: Reports chest pain and dyspnea on exertion; Denies claudication, edema or palpitations Respiratory/Chest Respiratory/Chest: Reports dyspnea, shortness of breath with exertion and other Details: Patient complains on chest pain during inspiration and while coughing ; Denies cough, hemoptysis or shortness of breath at rest Gastrointestinal Gastrointestinal: Denies abdominal pain, constipation, diarrhea, hematemesis, hematochezia, melena, nausea or vomiting Genitourinary Genitourinary: Denies dysuria, hematuria, urinary frequency, urinary hesitancy, urinary incontinence or urinary urgency Musculoskeletal Musculoskeletal: Denies back pain, joint pain, joint stiffness, joint swelling, myalgias or neck pain Neurologic Neurologic: Denies abnormal gait, abnormal speech, dizziness, focal weakness, headache(s), loss of vision, numbness, other visual disturbances, paresthesias, syncope or tingling Psychiatric Psychiatric: Denies anxiety, cognitive impairment, depression, irritability, mood swings or suicidal ideation Endocrine Endocrinology: Denies change in body appearance, cold intolerance, excessive sweating, heat intolerance, polydipsia or polyuria Hematologic/Lymphatic Hematologic/Lymphatic: Denies none, anemia, easy bleeding, easy bruising or lymphadenopathy Allergic/Immunologic Allergic/Immunologic: Denies rhinitis, urticaria, eczemia or asthma Vital Signs Vital Signs Vital Signs: 06/04/21 03:59 06/04/21 04:02 06/04/21 04:27 Temperature 97.7 F L 97.7 F L Temperature Source Temporal Temporal Pulse Rate 66 66 Respiratory Rate 18 18 Blood Pressure 129/62 H 129/62 H Blood Pressure Mean 84 84 Pulse Ox 90 90 Oxygen Delivery Method Room Air Room Air Nasal Cannula Oxygen Flow Rate (L/min) 2 06/04/21 05:17 Temperature 98.0 F Temperature Source Temporal Pulse Rate 64 Respiratory Rate 23 H Blood Pressure 127/66 H Blood Pressure Mean 86 Pulse Ox 98 Oxygen Delivery Method Nasal Cannula Oxygen Flow Rate (L/min) 3 Weight Weight: 82.6 kg Body Mass Index (BMI) 30.3 Physical Exam Const alert, oriented x3 and healthy appearing Constitutional Narrative: Patient exhibits some distress from chest discomfort when deep breathing, talking, or coughing General Appearance: cooperative, well kempt and well developed Orientation / Consciousness: awake, oriented to person, oriented to place and oriented to time HEENT normocephalic, head/scalp atraumatic, hearing grossly normal bilaterally and moist oral mucous membranes Eyes PERRL, EOMs intact bilaterally and conjunctivae normal Neck nuchal rigidity, supple, no JVD, thyroid normal and no carotid bruits General: trachea midline Resp normal respiratory effort, no retractions, no use of accessory muscles and clear to auscultation bilaterally Auscultation: Negative for rales, rhonchi or wheezes Cardio regular rate, regular rhythm, S1 normal heart sound, S2 normal heart sound, no murmurs, no rub and no gallops GI normal to inspection, nondistended, normoactive bowel sounds, soft to palpation, non-tender and non-distended Extremity no clubbing, cyanosis or edema Skin no rashes or lesions noted General Skin Exam: no breakdown Neuro oriented x3, CN's II-XII intact bilaterally, no focal motor deficits and no sensory deficits noted Sensorium / Orientation: awake and alert Speech: speech normal Psych thought process normal and affect normal Results Lab / Micro Data Result Diagrams: 06/04/21 04:10 06/04/21 04:10 Labs: Laboratory Results - last 24 hr 06/04/21 04:10: WBC 18.9 H, RBC 4.55, Hgb 13.5, Hct 41.0, MCV 90.1, MCH 29.7, MCHC 32.9, RDW Std Deviation 42.1, RDW Coeff of Heidy 12.8, Plt Count 227, MPV 9.1, Neut % (Auto) Not Reportable 06/04/21 04:10: Sodium 135 L, Potassium 6.3 H*, Chloride 103, Carbon Dioxide 27.0, Anion Gap 5, BUN 28 H, Creatinine 0.88, Estim Creat Clear Calc 52.76, Est GFR (MDRD) Af Amer 82, Est GFR (MDRD) Non-Af 68, BUN/Creatinine Ratio 32.0 H, Glucose 94, Calcium 8.4 L, Troponin I High Sens < 3 L Radiology Impression Chest CTA 06/04/21 04:16 IMPRESSION: Interval development of acute pulmonary emboli involving the right lung pulmonary arteries. Multiple bilateral streaky subpleural lung opacities consistent with evolving pneumonia which is more groundglass in density on prior study. Electronically Signed: Darnell Ellis MD at 5:45 EST Tel , Service support , Chest X-Ray 06/04/21 04:16 IMPRESSION: Persistent streaky subpleural left greater than right lung opacities likely due to prior detected pneumonia. Electronically Signed: Darnell Ellis MD at 4:36 EST Tel , Service support , Assessment & Plan Assessment/Plan (1) Pulmonary embolism: PLAN: 1. Acute pulmonary embolism-patient will be placed in observation status on PCU, she was given Eliquis in the emergency room and this will be continued during her hospitalization. I have elected not to obtain an echocardiogram on the patient, I do not think that this will change her overall treatment. #2 acute on chronic hypoxic respiratory failure secondary to pulmonary embolism on an overlay of recent COVID-19 pneumonia-patient may need her oxygen prescription recalculated before she is discharged home, patient had been increasing her oxygen setting at home according to a pulse ox that she had. Pulse ox will be monitored #3 pleurisy secondary to #1-patient will be placed on IV narcotics, pulse ox will be monitored #4 essential hypertension Patient will need to be in Covid isolation until June 06, 2021 Charges/Coding Visit Charges OBSV E&M: 07107 Initial observation care L3
[2021-06-04 06:17] LABS: Mucous, Urine 0 SEEN /hpf (<or=2+)
[2021-06-04 06:23] LABS: Color, Urine Yellow (Yellow); Glucose, Dipstick Normal (Normal); Ketone-Dipstick Negative (Negative); Leukocyte Esterase-Dipstick 500 /ul (Negative); Nitrite-Dipstick Negative (Negative); Occult Blood-Urine 10 /ul (Negative); Protein-Dipstick 15 mg/dl (Negative); Specific Gravity, Urine 1.015 (1.002-1.030); Urine Bilirubin Dipstick Negative (Negative); Urine Clarity Clear (Clear); Urine Urobilinogen Normal (Normal)
[2021-06-04 06:55] LABS: Bacteria 1+ /hpf (None Seen); Red Blood Cells-Urine 0-5 SEEN /hpf (0-5); Squamous Epithelial Cells - UA 0-5 SEEN /hpf (5-10); White Blood Cells 10-25 SEEN /hpf (0-5)
[2021-06-04 07:29] LABS: Absolute Neutrophil Count 13.8 X10^3/uL (2.0-7.7); Lymphocyte 18 % (19-41); Monocyte 4 % (0-10); Myelocyte 4 % (0-0); Neutrophil-Segmented 73 % (47-70); Platelet Estimate ADEQUATE (ADEQ); Promyelocyte 1 % (0-0); Total Cells Counted 100 (MANUAL DIFF)
[2021-06-04 07:30] LABS: Red Cell Morphology NORM C+C NORMAL (NORM C&C)
[2021-06-04 10:26] LABS: Potassium 4.1 mmol/L (3.5-5.1)
[2021-06-04] MEDS: oxyCODONE 5 MG Tablet 10 MG PO (10:27)
[2021-06-04] MEDS: Citalopram 20 MG Tablet PO (10:29)
[2021-06-04] MEDS: Pantoprazole Sodium 40 MG Tablet PO (10:29)
[2021-06-04] MEDS: hydrOXYzine PAM 25 MG Capsule PO (10:29)
[2021-06-04] MEDS: Nitrofurantoin Macrocrystals 100 MG Capsule PO (10:29)
--- NOTE | 2021-06-04 10:56 | PCM.DC ---
Discharge Instructions Diet Discharge Diet: Low fat / Low cholesterol Activity Discharge Activity: Return to Normal Activity Dressing / Incision Call your doctor if you observe: Shortness of breath, Dizziness, Chest pain and Increased palpitations (irregular heartbeat) Follow Up Care Test Results: Test results from this visit will be discussed in further detail at your follow-up appointment, if applicable. Discharge Plan Admission Admit Date/Time: 06/04/21 08:32 Primary Reason for Your Visit: Pulmonary embolism Attending Provider: Ariel Hughes Primary Care Provider: Ken Quarles Instructions Additional Instructions / Restrictions: You may take up to 3000 mg of Tylenol daily. You may also take 400-600mg of Ibuprofen prior to bedtime. Discharge Orders/Prescriptions Prescriptions: New Eliquis 5 mg Tablet 10 mg PO Q12H Qty: 72 RF: 0 Continued pantoprazole [Protonix] 40 mg Tablet,Delayed Release (Dr/Ec) 40 mg PO DAILY RF: 0 montelukast [Singulair] 10 mg Tablet 10 mg PO QHS RF: 0 nitrofurantoin 100 mg Capsule 100 mg PO DAILY RF: 0 citalopram 20 mg Tablet 20 mg PO DAILY RF: 0 hydroxyzine HCl 25 mg Tablet 25 mg PO DAILY RF: 0 atenolol 50 mg Tablet 50 mg PO DAILY RF: 0 triamterene-hydrochlorothiazid 37.5-25 mg Capsule 1 cap PO DAILY Qty: 0 RF: 0 Referrals / Follow Up: Ken Quarles MD [Primary Care Provider] - Disposition Disposition (needs filled in before D/C Order can be placed): Home, Self Care
--- NOTE | 2021-06-04 11:05 | DS.PCM_ITS ---
Documented by User: REYNALDO Dela Cruz 06/05/21 10:39 Providers Date of Admission: 06/04/21 Primary Care Physician: Dr. Ken Quarles MD Reason For Visit: ACUTE PE, RESPIRATORY FAILURE Diagnosis Discharge Diagnosis (1) Pulmonary embolism: Status: Acute Code(s): I26.99 - Other pulmonary embolism without acute cor pulmonale Medications at Discharge Home Medications apixaban [Eliquis] 10 mg PO Q12H #72 tab 06/04/21 atenolol 50 mg PO DAILY 06/04/21 citalopram 20 mg PO DAILY 06/04/21 hydroxyzine HCl 25 mg PO DAILY 06/04/21 montelukast [Singulair] 10 mg PO QHS 06/04/21 nitrofurantoin 100 mg PO DAILY 06/04/21 pantoprazole [Protonix] 40 mg PO DAILY 06/04/21 triamterene-hydrochlorothiazid 1 cap PO DAILY #0 cap 06/04/21 Hospital Course Operations None Procedures None Summary of Care Provided Minutes Spent on Discharge: 35 Hospital Course: Patient is a 70-year-old female who initially presented to the ER with increased shortness of breath and increased need for oxygen. Patient recently diagnosed with Covid 19 and had been discharged home on 2 L nasal cannula oxygen however patient states that she continued to be short of breath and represented to the ER. CTA and straits acute pulmonary emboli involving the right lung pulmonary arteries multiple bilateral streaky subpleural lung opacities consistent with evolving pneumonia which is more groundglass in density on prior study. Patient was initiated on Eliquis on 10 mg twice daily x6 days then 5 mg twice daily. Patient will also be discharged home on 2 L nasal cannula oxygen at rest and 3 L nasal cannula oxygen with exertion. Physical Exam Const alert, oriented x3 and no apparent distress General Appearance: cooperative HEENT normocephalic and head/scalp atraumatic Eyes conjunctivae normal and no scleral icterus Neck supple General: trachea midline Resp normal respiratory effort, normal air movement and clear to auscultation bilaterally Effort and Inspection: tachypneic Cardio regular rate, regular rhythm, S1 normal heart sound and S2 normal heart sound GI normal to inspection, nondistended, normoactive bowel sounds, soft to palpation and non-tender Extremity normal capillary refill and no clubbing, cyanosis or edema General Extremity: no tenderness to palpation of joints or extremities Skin skin turgor normal General Skin Exam: no breakdown Lesions: no lesions Rashes: no rashes Neuro oriented x3, no focal motor deficits and no sensory deficits noted Psych affect normal Appearance: appropriate Weight / BMI Weight Weight: 178 lb 9.191 oz Body Mass Index (BMI) 29.7 ABG / Lab / Microbiology Data Result Diagrams: 06/05/21 06:07 06/05/21 06:07 Laboratory: Laboratory Results - last 24 hr 06/04/21 04:10: WBC 18.9 H, RBC 4.55, Hgb 13.5, Hct 41.0, MCV 90.1, MCH 29.7, MCHC 32.9, RDW Std Deviation 42.1, RDW Coeff of Heidy 12.8, Plt Count 227, MPV 9.1, Neut % (Auto) Not Reportable, Absolute Neuts (auto) 13.8 H, Absolute Lymphs (auto) 3.40, Total Counted 100, Neutrophils % (Manual) 73 H, Lymphocytes % (Manual) 18 L, Monocytes % (Manual) 4, Myelocytes % 4 H, Promyelocytes % 1 H, Diff Path Review May foll, Platelet Estimate ADEQUATE, RBC Morphology NORM C+C 06/04/21 04:10: Sodium 135 L, Potassium 6.3 H*, Chloride 103, Carbon Dioxide 27.0, Anion Gap 5, BUN 28 H, Creatinine 0.88, Estim Creat Clear Calc 52.76, Est GFR (MDRD) Af Amer 82, Est GFR (MDRD) Non-Af 68, BUN/Creatinine Ratio 32.0 H, Glucose 94, Calcium 8.4 L, Troponin I High Sens < 3 L 06/04/21 05:50: Urine Color Yellow, Urine Clarity Clear, Urine pH 6.0, Ur Specific Spreckels 1.015, Urine Protein 15 H, Urine Glucose (UA) Normal, Urine Ketones Negative, Urine Occult Blood 10 H, Urine Nitrite Negative, Urine Elias irubin Negative, Urine Urobilinogen Normal, Ur Leukocyte Esterase 500 H, Urine RBC 0-5 SEEN, Urine WBC 10-25 SEEN, Ur Squamous Epith Cells 0-5 SEEN, Urine Bacteria 1+, Urine Mucus 0 SEEN 06/04/21 10:03: Potassium 4.1 Radiography Diagnostic Testing: Radiology Impression Chest CTA 06/04/21 04:16 IMPRESSION: Interval development of acute pulmonary emboli involving the right lung pulmonary arteries. Multiple bilateral streaky subpleural lung opacities consistent with evolving pneumonia which is more groundglass in density on prior study. Electronically Signed: Darnell Ellis MD at 5:45 EST Tel , Service support , Chest X-Ray 06/04/21 04:16 IMPRESSION: Persistent streaky subpleural left greater than right lung opacities likely due to prior detected pneumonia. Electronically Signed: Darnell Ellis MD at 4:36 EST Tel , Service support , D/C Instructions Discharge Diet: Low fat / Low cholesterol Call your doctor if you observe: Shortness of breath, Dizziness, Chest pain and Increased palpitations (irregular heartbeat) Meaningful Use Info Meaningful Use Diagnoses (Choose all that apply): None applicable Discharge Plan Admission Admit Date/Time: 06/04/21 08:32 Primary Reason for Your Visit: Pulmonary embolism Attending Provider: Ariel Hughes Primary Care Provider: Ken Quarles Instructions Additional Instructions / Restrictions: You may take up to 3000 mg of Tylenol daily. You may also take 400-600mg of Ibuprofen prior to bedtime. Discharge Orders/Prescriptions Prescriptions: New Eliquis 5 mg Tablet 10 mg PO Q12H Qty: 72 RF: 0 Continued pantoprazole [Protonix] 40 mg Tablet,Delayed Release (Dr/Ec) 40 mg PO DAILY RF: 0 montelukast [Singulair] 10 mg Tablet 10 mg PO QHS RF: 0 nitrofurantoin 100 mg Capsule 100 mg PO DAILY RF: 0 citalopram 20 mg Tablet 20 mg PO DAILY RF: 0 hydroxyzine HCl 25 mg Tablet 25 mg PO DAILY RF: 0 atenolol 50 mg Tablet 50 mg PO DAILY RF: 0 triamterene-hydrochlorothiazid 37.5-25 mg Capsule 1 cap PO DAILY Qty: 0 RF: 0 Referrals / Follow Up: Ken Quarles MD [Primary Care Provider] - Disposition Disposition (needs filled in before D/C Order can be placed): Home, Self Care Addendum Addendum Details:: Patient seen 06/05/2021 no changes overnight to patient condition. Patient was not discharged previous date due to lethargy following administration of narcotics. Patient will be discharged home with home O2 along with Eliquis. Documented by User: Dr. Ariel Hughes MD 06/05/21 11:49 Providers Date of Admission: 06/04/21 Reason For Visit: ACUTE PE, RESPIRATORY FAILURE Medications at Discharge Home Medications apixaban [Eliquis] 10 mg PO Q12H #72 tab 06/04/21 atenolol 50 mg PO DAILY 06/04/21 citalopram 20 mg PO DAILY 06/04/21 hydroxyzine HCl 25 mg PO DAILY 06/04/21 montelukast [Singulair] 10 mg PO QHS 06/04/21 nitrofurantoin 100 mg PO DAILY 06/04/21 pantoprazole [Protonix] 40 mg PO DAILY 06/04/21 triamterene-hydrochlorothiazid 1 cap PO DAILY #0 cap 06/04/21 ABG / Lab / Microbiology Data Result Diagrams: 06/05/21 06:07 06/05/21 06:07 Discharge Plan Admission Admit Date/Time: 06/04/21 08:32 Primary Reason for Your Visit: Pulmonary embolism Attending Provider: Ariel Hughes Primary Care Provider: Ken Quarles Instructions Additional Instructions / Restrictions: You may take up to 3000 mg of Tylenol daily. You may also take 400-600mg of Ibuprofen prior to bedtime. Discharge Orders/Prescriptions Prescriptions: New Eliquis 5 mg Tablet 10 mg PO Q12H Qty: 72 RF: 0 Continued pantoprazole [Protonix] 40 mg Tablet,Delayed Release (Dr/Ec) 40 mg PO DAILY RF: 0 montelukast [Singulair] 10 mg Tablet 10 mg PO QHS RF: 0 nitrofurantoin 100 mg Capsule 100 mg PO DAILY RF: 0 citalopram 20 mg Tablet 20 mg PO DAILY RF: 0 hydroxyzine HCl 25 mg Tablet 25 mg PO DAILY RF: 0 atenolol 50 mg Tablet 50 mg PO DAILY RF: 0 triamterene-hydrochlorothiazid 37.5-25 mg Capsule 1 cap PO DAILY Qty: 0 RF: 0 Referrals / Follow Up: Ken Quarles MD [Primary Care Provider] - Disposition Disposition (needs filled in before D/C Order can be placed): Home, Self Care Charges/Coding Addendum Addendum: Dr. Hughes: I personally reviewed the chart and examined the patient, and agree with the above findings. 70-year-old female presented to the hospital with worsening shortness of breath as well as chest pain was found to have a right-sided PE. No sign of pulmonary infarct on the assembly room supervisor image or the CTA itself. She did have Covid with symptoms starting on the first or 2 May she is currently outside the window for quarantine. She did receive treatment for her Covid I believe with steroids previously but now comes in with PEs. Plan had been to discharge her yesterday however one single dose of oxycodone was not to make her lethargic and sleepy and unsafe to be discharged. I discussed with her and her daughter that therefore narcotics not cannot be a great idea for her and instead I do recommend that she alternate between Tylenol and Advil to get her pain under control. I did discuss the risk of bleeding with Eliquis and Advil and my hope is that the temporary use of the Advil will not increase her risk significantly, however they are aware of that risk. I discussed with her today the plan for discharge and she expressed understanding of the risk and benefits of going home and would like to go home with. General: A&O x3 NAD, cooperative HEENT: Normocephalic, conjunctive are normal, PERRLA, EOMI Neck: Supple no JVD Respiratory: Clear to auscultation bilaterally, normal air movement Cardiac: Regular rate and rhythm no murmurs rubs or gallops GI: Normal to inspection nondistended soft, nontender Extremity: No clubbing, cyanosis, or edema Skin: No lesions or breakdown Neurology: No focal motor deficits and no sensory deficits Psych: Affect is normal and her appearance is appropriate no signs of lethargy that she had yesterday Visit Charges Inpatient E&M: 20118 Disch Hosp
--- NOTE | 2021-06-04 11:47 | CASEMGMT ---
CESIA MCCLAIN Assessment: Face to Face with pt for initial transition planning/care coordination assessment. CESIA MCCLAIN introduced self and role at [facility], pt voices understanding and consents to assessment. Pt is A/O x4 and answers all questions appropriately at this time. Pt lying in bed with her eyes closed and O2 on in no distress. Pt dtr at bedside. Care providers, pharmacy, and demographics verified/updated. Admitting Dx: acute PE, resp failure PCP:Willam Specialists:Pt denies having any specialists. Preferred Pharmacy: Prefers [facility] while inpatient but rx already called into [facility]. Insurance: [employer] [facility] Prescription Benefit: yes LW/HPOA: Pt states she has a LW/DPOA and her DPOA is her dtr Kellie Medley. She is aware this is not on file at [facility] and she may bring in to be scanned into the chart. LNOK: Kellie Medley, dtr; Indira Hartley, friend Living Arrangements: Pt lives alone in a single story house with 3 steps to enter with a rail. Pt reports being I in ADL's and denies concerns at home. Transportation: Pt drives self and denies concerns with transportation. DME/HHC/SNF: Pt has a CPAP at home, oxygen at 2L continuous through [employer] and a pulse ox. Pt dtr is aware pt will need her portable O2 to go home on and will bring in. Pt denies hx of HHC or SNF stays. Pt states she was first tested at [facility] urgent care. She does have family who can provide her with groceries and supplies. Plan for pt to dc today. Pt qualified for increased O2. Will send updated script to [employer] as well as orders to bleed into CPAP. Pt dtr is concerned that pt pain will not be able to managed at home. She will speak with hospitalists regarding this. Pt states no further concerns/needs. CM to follow. Advised pt to ask CM if any further question/concerns/needs arise, voices understanding. Pt Goal: Home Plan: Home Provided pt with IS. Provided pt with an [employer] savings card and explanation provided.
[2021-06-04] MEDS: Atenolol 50 MG Tablet PO (14:22)
[2021-06-04] MEDS: Triamterene 37.5MG/Hctz 25MG Capsule 1 CAP PO (14:23)
[2021-06-04] MEDS: levoFLOXacin IV 750 MG/150 ML BAG 100 MG IV (16:53)
[2021-06-04] MEDS: Acetaminophen 325 MG Tablet 650 MG PO ×2 (16:53→23:35)
[2021-06-04] MEDS: Montelukast 10 MG Tablet PO (20:36)
[2021-06-04] MEDS: 0.9% Saline Lock 10 ML Syringe IV (21:59)
[2021-06-04] MEDS: Ketorolac 15 MG/ML Vial IV (21:59)
[2021-06-05] VITALS (7 sets, daily range): BP systolic 108–131; BP diastolic 63–73; PULSE 59–75; RESP 18–20; TEMP 36.6–37.8; O2SAT 86–97
[2021-06-05] MEDS: APIXABAN 5 MG TABLET 10 MG PO (05:54)
[2021-06-05 06:51] LABS: Absolute Lymphocyte Count 2.31 X10^3/uL (0.83-4.51); Absolute Neutrophil Count 14.2 X10^3/uL (2.0-7.7); Basophil# 0.08 X10^3/uL; Basophil% 0.4 % (0-1); Eosinophil# 0.23 X10^3/uL; Eosinophils% 1.2 % (0-5); Hematocrit 40.1 % (37-47); Hemoglobin 13.2 g/dL (12.0-15.0); Lymphocyte # 2.31 X10^3/ul (0.83-4.51); Lymphocyte % 12.2 % (19-41); Mean Corp Hgb Conc 32.9 g/dL (32-36); Mean Corpuscular Hgb 30.1 pg (27.0-32.0); Mean Corpuscular Volume 91.3 fL (81-99); Mean Platelet Vol. 9.3 fl (6.2-12.0); Monocyte# 1.52 X10^3/uL; NRBC Flagged by Analyzer 0 % (0-5); Neutrophil # 14.22 X10^3/uL (2.7-7.7); POSITIVE DIFFERENTIAL YES; Platelet Count 178 K/mm3 (150-450); RBC Distribution Width CV 13.1 % (11.6-14.6); RBC Distribution Width SD 43.9 fl (35.1-43.9); Red Blood Count 4.39 M/mm3 (4.2-5.4)
[2021-06-05 06:53] LABS: Differential Indicated SCAN CRITERIA MET
[2021-06-05 07:15] LABS: Differential Comment SCANNED
[2021-06-05 07:27] LABS: Anion Gap 8 (5-15); BUN 20 mg/dL (7-18); BUN/Creat Ratio 24.3 RATIO (10-20); Calcium,Total 8.9 mg/dL (8.5-10.1); Chloride 98 mmol/L (98-107); Creatinine, Serum 0.82 mg/dL (0.55-1.02); EST Glomerular Filtration Rate 73 mL/min (>60); Est Glom Filt Rate - Afr Amer 88 mL/min (>60); Estimated Creatinine Clearance 54.34 ml/min; Glucose 90 mg/dL (74-106); Potassium 4.4 mmol/L (3.5-5.1); Sodium Level 134 mmol/L (136-145)
[2021-06-05] MEDS: levoFLOXacin IV 750 MG/150 ML BAG 100 MG IV (09:06)
[2021-06-05] MEDS: Triamterene 37.5MG/Hctz 25MG Capsule 1 CAP PO (09:06)
[2021-06-05] MEDS: Citalopram 20 MG Tablet PO (09:06)
[2021-06-05] MEDS: Nitrofurantoin Macrocrystals 100 MG Capsule PO (09:07)
[2021-06-05] MEDS: hydrOXYzine PAM 25 MG Capsule PO (09:07)
[2021-06-05] MEDS: Pantoprazole Sodium 40 MG Tablet PO (09:07)
[2021-06-05] MEDS: Atenolol 50 MG Tablet PO (09:07)
--- NOTE | 2021-06-05 10:37 | CASEMGMT ---
Patient had change in O2 Rx. Faxed updated prescription to [facility].
--- NOTE | 2021-06-05 11:05 | CASEMGMT ---
TC to [facility] pharmacy to check cost of Eliquis, spoke to Josefa who states medication has already been picked up. Coupon card was used, no charge to patient.
[2021-06-05] MEDS: Acetaminophen 325 MG Tablet 650 MG PO (14:20)
[2021-06-06 09:37] LABS: Pathologist Review Reviewed
[2021-06-06 09:50] LABS: Pathologist Review Reviewed
== END 2021-06-05 14:28 | disposition home or self-care (01) | DRG 177 ==
LOC: ED 05:33 → MS3 07:03
PROVIDERS: Nurse Practitioner Family; Admitting Provider Internal Medicine; Emergency Provider Emergency Medicine; PCP Internal Medicine; Visit Provider Family Medicine
DX: U07.1 COVID-19 (principal); I26.99 Other pulmonary embolism without acute cor pulmonale; J96.21 Acute and chronic respiratory failure with hypoxia; R53.83 Other fatigue; T40.2X5A Adverse effect of other opioids, initial encounter; Y92.239 Unspecified place in hospital as the place of occurrence of the external cause; I10 Essential (primary) hypertension; J45.909 Unspecified asthma, uncomplicated; G47.30 Sleep apnea, unspecified; K21.9 Gastro-esophageal reflux disease without esophagitis; F32.A Depression, unspecified; Z79.899 Other long term (current) drug therapy; Z90.49 Acquired absence of other specified parts of digestive tract; Z87.01 Personal history of pneumonia (recurrent); Z86.16 Personal history of COVID-19
CPT/HCPCS: 36415; 71045; 71275; 80048; 81001; 84132; 84484; 85025; 87449; 93005; 99285; J7040; Q9967; A4216; J2405

== ENCOUNTER 2021-09-11 22:05 | Emergency (ER) | payer MEDICARE, SELFPAY ==
[2021-09-11 22:06] VITALS: BP 148/58; PULSE 70; RESP 18; TEMP 36.5; O2SAT 98; BMI 29.0
--- NOTE | 2021-09-11 22:33 | EKG12_ITS ---
Test Reason : CP Blood Pressure : / mmHG Vent. Rate : 062 BPM Atrial Rate : 062 BPM P-R Int : 152 ms QRS Dur : 082 ms QT Int : 416 ms P-R-T Axes : 051 050 049 degrees QTc Int : 422 ms Normal sinus rhythm Normal ECG Confirmed by GIORGI JACKMAN, ELZA ([id number]), food editor ZAHIRA CONDON ([id number]) on 09/12/2021 1:42:00 PM Referred By: JOHN Confirmed By:ELZA RAND MD
--- NOTE | 2021-09-11 22:45 | RAD_ITS ---
We are attempting to reach an attending provider to discuss findings. An addendum with communication details will be sent when the communication is complete. STUDY: X-RAY CHEST REASON FOR EXAM: Female, 71 years old. chest pain TECHNIQUE: AP portable upright exam. COMPARISON EXAM: : June 04, 2021 AP portable upright exam. May 27 and May 25, 2021 exams also provided HISTORY: chest pain TECHNIQUE: XR Chest 1 View COMPARISON: None. LIMITATIONS: None. HEART: Normal size. TUBES/LINES: None. LUNGS: There is new juxtapleural question of wedge-shaped opacity at the right lateral lower lung field partially overlapping the inferior margin of the right scapula, estimated to be roughly 3.4 cm x 3.5 cm. This may be juxtapleural infiltrate or infarct. Not a typical appearance of atelectasis, it is not juxtadiaphragmatic. PLEURA: Normal. MEDIASTINUM: Normal. BONES/SOFT TISSUES: Normal. OTHER: Normal. CONCLUSION: Small new juxtapleural wedge-shaped hazy opacity at the right lateral lower lung field, indeterminate, primary considerations include infiltrate or infarct. Consider PE protocol chest if it is thought to be indicated. Electronically Signed: Adela Berman MD at 23:39 EDT , RAD/Chest 1 View (Portable)
[2021-09-11 22:50] VITALS: O2SAT 98
--- NOTE | 2021-09-11 22:57 | ED.VIS.CHEST ---
HPI History of Present Illness Chief Complaint: Chest Pain Informant: patient Onset/Context/Timing Onset: Hours (3 (prior to eval)) Activity at onset: sudden and rest (sitting on couch) Timing: Continuous Quality: Positive for Pain Location: Right Chest Current Severity: Mild Maximum Severity: Moderate Worsened By: Movement of Torso and Breathing Relieved By: Rest and - (Tylenol she took earlier) Associated Symptoms: Positive for Dyspnea (not now) and Palpitations (brief with onset, racing; resolved since); Negative for Nausea, Vomiting, Diaphoresis, Cough, Fever and Lightheadedness Narrative Narrative: Patient states spontaneous onset tonight while at rest of discomfort in her right chest without radiation. It was more laterally and in the inframammary region, does not cross the midline or go into her back, shoulder, jaw, or arm. She currently is on Eliquis after being diagnosed with a pulmonary embolus that she felt in her right upper back that was provoked by having Covid. She does not have any clotting disorders. Prior Similar Symptoms: Yes (Feels similar to prior episode of pleurisy) Recent Illness/Hospitalization: No PE Risk Factors: Positive for Prior DVT or PE (PE but no DVT. No symptoms of a current DVT.); Negative for Recent Travel/Surgery, Recent Immobilization, Cancer and OCP + Smoking + >/=35 PFSH PFSH Medical History (Updated 09/12/21 @ 02:[address] Jp Prince MD) Asthma Chronic cystitis Depression GERD (gastroesophageal reflux disease) Hypertension Pulmonary embolism Sleep apnea Home Medications Eliquis 10 mg PO Q12H #72 tab 06/04/21 [Rx Last Taken Unknown] atenolol 50 mg PO DAILY 06/04/21 [History Last Taken Unknown] citalopram 20 mg PO DAILY 06/04/21 [History Last Taken Unknown] hydroxyzine HCl 25 mg PO DAILY 06/04/21 [History Last Taken Unknown] montelukast [Singulair] 10 mg PO QHS 06/04/21 [History Last Taken Unknown] pantoprazole [Protonix] 40 mg PO DAILY 06/04/21 [History Last Taken Unknown] triamterene-hydrochlorothiazid 1 cap PO DAILY #0 cap 06/04/21 [Rx Last Taken Unknown] amoxicillin-pot clavulanate [Augmentin] 1 tab PO TID #30 tab 09/12/21 [Rx Last Taken Unknown] tramadol 50 mg PO Q4H PRN PRN 3 Days #18 tab 09/12/21 [Rx Last Taken Unknown] Allergy/AdvReac Type Severity Reaction Status Date / Time No Known Allergies Allergy Verified 09/11/21 22:07 Surgical History History of cholecystectomy Social History Smoking Status: Never smoker ROS ROS ED Constitutional Constitutional ED: Denies chills or fever(s) Eyes Eyes: Denies change in vision or diplopia ENT ENT ED: Denies rhinorrhea or sore throat Cardiovascular Cardiovascular: Reports as per HPI and chest pain; Denies palpitations Respiratory/Chest Respiratory/Chest: Reports other Details: mild dyspnea due to painful respirations (not frankly dyspneic) ; Denies cough Gastrointestinal Gastrointestinal: Denies abdominal pain, diarrhea, nausea or vomiting Genitourinary Genitourinary ED: Denies dysuria or hematuria Musculoskeletal Musculoskeletal: Denies back pain or neck pain Integumentary Denies abscess or rash Neurologic Neurologic: Denies headache(s), paresthesias or weakness Psychiatric Psychiatric: Denies anxiety or suicidal thoughts EXAM Physical Exam Const Vital Signs: 09/11/21 22:06 09/11/21 22:47 09/11/21 22:50 Temperature 97.7 F L Temperature Source Temporal Pulse Rate 70 Respiratory Rate 18 Respiratory Effort Normal Non-Labored Blood Pressure 148/58 H Blood Pressure Mean 88 Pulse Ox 98 98 Oxygen Delivery Method Room Air Room Air 09/11/21 23:20 09/12/21 00:19 09/12/21 01:13 Temperature Temperature Source Pulse Rate 63 66 63 Respiratory Rate 18 14 20 H Respiratory Effort Blood Pressure 125/60 H 125/62 H 130/62 H Blood Pressure Mean 81 83 84 Pulse Ox 98 99 94 Oxygen Delivery Method Room Air Room Air Room Air 09/12/21 02:00 Temperature Temperature Source Pulse Rate 60 Respiratory Rate 20 H Respiratory Effort Blood Pressure 125/81 H Blood Pressure Mean 95 Pulse Ox 97 Oxygen Delivery Method Room Air Positive well nourished and well developed General Appearance ED: well developed and NAD HEENT Reports moist mucous membranes normocephalic and atraumatic Eyes PERRL and EOMs intact bilaterally Neck full ROM and supple Chest Wall inspection of chest normal, palpation of chest normal and palpation of breasts normal Chest: Negative for tenderness Resp normal respiratory effort and clear to auscultation bilaterally Cardio regular rate, regular rhythm and no murmurs Rate: Negative for tachycardic GI non-tender and non-distended Auscultation: normoactive bowel sounds Palpation: soft Back/Spine no CVA tenderness General Back: other FROM Extremity normal to inspection, no calf tenderness and no pedal edema General Extremety ED: Negative for edema, pulses abnormal or tenderness General Extremity: Negative for edema or pulses abnormal Neuro oriented x3, CN's II-XII intact bilaterally and no sensory deficits noted Sensorium / Orientation: awake and alert Motor Exam: strength 5/5 throughout Skin no rashes or lesions noted and no wounds Heart Score History: Slightly/Non-Suspicious ECG: Normal Age: >/= 65 years Risk Factors: 1 or 2 Risk Factors Troponin: </= Normal Limit Score: 3 MDM MDM MDM Narrative Medical decision making narrative: EKG and labs unremarkable except for a mild nonspecific leukocytosis, her chest x-ray shows a small peripheral wedge-shaped infiltrate on the right, where the patient is having pain. Radiology called me about this. She recommended CT angiography of the chest to further evaluate given that the differential includes pneumonia and an infarct. The CT was performed and according to the radiologist's interpretation, it did not necessarily help elucidate the etiology further but did show no residual or new pulmonary emboli that were able to be seen. The wedge-shaped airspace abnormality is peripheral near the pleura, and is in the area of the patient's pain which is clearly causing her pain. She is doing well and was improved after tramadol, and had normal vital signs without hypoxemia. Initially discussed with pulmonology Dr. Lara. He recommended continuing the Eliquis for now, performing an ambulatory pulse ox to ensure that she does not become hypoxemic with this, and having her follow-up with hematology/oncology. She ambulated without dyspnea or hypoxemia, her lowest pulse ox was 94% on room air. I discussed with Dr. Campa who is on-call for unassigned heme/Onc. He recommended getting a D-dimer prior to discharging the patient for follow-up. If negative, then he agrees that treating her empirically for possible early pneumonia would be reasonable, and if positive recommend changing her Eliquis to Lovenox. While we were waiting on the D-dimer to come back, I did give her an empiric dose of 12-hour Lovenox and she did not take her Eliquis tonight and at the time it was 1:30 AM. D-dimer returned normal at 0.31. Therefore, started her on a dose of Augmentin tonight (her citalopram interacts w/ Levaquin) and will prescribe her a 10-day course to cover pneumonia empirically and encourage close outpatient follow-up as above. Advised to continue her Eliquis with the next dose being okay to take as scheduled tomorrow morning. Lab Data Attestation: I reviewed the patient's lab results. Labs: Laboratory Results - last 24 hr 09/11/21 09/11/21 09/12/21 22:40 22:40 01:26 WBC 12.3 H RBC 4.29 Hgb 13.3 Hct 39.1 MCV 91.1 MCH 31.0 MCHC 34.0 RDW Std Deviation 41.4 RDW Coeff of Heidy 12.5 Plt Count 181 MPV 9.7 Immature Gran % (Auto) 0.500 Neut % (Auto) 73.7 H Lymph % (Auto) 15.6 L Upton % (Auto) 8.8 Eos % (Auto) 1.0 Baso % (Auto) 0.4 Absolute Neuts (auto) 9.1 H Absolute Lymphs (auto) 1.92 Nucleated RBC % 0 D-Dimer Quant (PE/DVT) 0.31 Sodium 140 Potassium 3.8 Chloride 108 H Carbon Dioxide 26.0 Anion Gap 6 BUN 22 H Creatinine 0.99 Estim Creat Clear Calc 48.09 Est GFR (MDRD) Af Amer 71 Est GFR (MDRD) Non-Af 59 L BUN/Creatinine Ratio 22.2 H Glucose 107 H Calcium 8.8 Troponin I High Sens < 3 L Radiography Chest X-Ray - ED: 1 View, Read by ED Physician and Right Infiltrate Diagnostic Testing: Clinical Impression(s) from Imaging Studies Chest X-Ray 09/11/21 22:45 ADDENDUM: 09/11/21 0048 Chest CTA 09/11/21 23:46 CTA Chest W/WO Contrast MR#: [id number] Acct: [id number] Name: GAIL TALAVERA Rep #: [id number] : 1950 F 71 From: Adela Berman MD PCP: Dr. Ken Quarles MD Status: REG ER Study: CTA Chest W/WO Contrast Date of Exam: 09/11/21 Exam# [id number] Ordering Dr: Jp Prince MD EXAM: CT pulmonary angiogram. HISTORY: right chest pain, abnormal CXR. Upon discussion with the referring physician earlier the patient had PE during Covid infection in May and remains on Eloquis. TECHNIQUE: CTA Chest WO/W Contrast Injection. 1.25 mm axials, coronal and sagittal reconstructions, 15 mm coronal and sagittal maximum intensity projection reconstructions. DOSE REDUCTION: A dose reduction technique was utilized for this exam. COMPARISON: June 04, 2021, the patient had bulky predominantly right-sided PE on the prior exam. LIMITATIONS: None. HEART: Upper limits of normal, stable. AORTA: No aneurysm or dissection. LUNGS: There is a wedge-shaped juxtapleural zone of opacity with mild adjacent haziness in the right lateral upper lobe predominantly abutting the major fissure, measuring roughly 7.8 cm x 5.5 cm x 3.9 cm, very suspicious appearance for infarct but there are enhancing vessels, this may be due to subacute infarct with recanalized vessel or pneumonia. It is new from prior exam in May. There were some mild atelectatic changes in this location and elsewhere. Mild atelectatic changes in the right lung base. PULMONARY VESSELS: Normal. Previously seen PE have resolved and there are enhancing vessels extending to the wedge-shaped juxtapleural right middle lobe opacity. No evidence of acute PE or obvious webs. PLEURA: Normal. AIRWAYS: No significant narrowing or obstruction. MEDIASTINUM: Multiple small mediastinal lymph nodes, not necessarily pathologic by size criteria. UPPER ABDOMEN: Normal. BONES/SOFT TISSUES: Normal. OTHER: None. CONCLUSION: Moderate zone of juxtapleural wedge-shaped airspace disease in the lateral right upper lobe has appearance suggesting pneumonia versus subacute infarct with recanalized vessels. There are adjacent small enhancing vessels. No evidence of acute or significant residual or recurrent PE. Electronically Signed: Adela Berman MD at 0:57 EDT EKG Initial EKG: Attestation: I personally reviewed and interpreted this EKG as follows: Interpretation: Sinus Rhythm and No Acute Injury Pattern Comments: rate 62. normal EKG. Discharge Plan Triage Chief Complaint: Chest Pain ED Provider: Jp rPince Dx/Rx/DC Orders Clinical Impression: Pneumonia involving right lung, Chest pain, pleuritic Instructions: ED Pneumonia (Adult) Prescriptions: New amoxicillin-pot clavulanate [Augmentin] 500-125 mg tablet 1 tab PO TID Qty: 30 RF: 0 tramadol 50 MG tablet 50 mg PO Q4H PRN PRN (Reason: Pain) 3 Days Qty: 18 RF: 0 Continued pantoprazole [Protonix] 40 mg Tablet,Delayed Release (Dr/Ec) 40 mg PO DAILY RF: 0 montelukast [Singulair] 10 mg Tablet 10 mg PO QHS RF: 0 citalopram 20 mg Tablet 20 mg PO DAILY RF: 0 hydroxyzine HCl 25 mg Tablet 25 mg PO DAILY RF: 0 atenolol 50 mg Tablet 50 mg PO DAILY RF: 0 Eliquis 5 mg Tablet 10 mg PO Q12H Qty: 72 RF: 0 triamterene-hydrochlorothiazid 37.5-25 mg Capsule 1 cap PO DAILY Qty: 0 RF: 0 Primary Care Provider: Ken Quarles Referrals: Romero Campa DO [STAFF PHYSICIAN] - As soon as possible (call for appt) Disposition Disposition: Home, Self Care
[2021-09-11 23:04] LABS: Absolute Lymphocyte Count 1.92 X10^3/uL (0.83-4.51); Absolute Neutrophil Count 9.1 X10^3/uL (2.0-7.7); Basophil# 0.05 X10^3/uL; Basophil% 0.4 % (0-1); Eosinophil# 0.12 X10^3/uL; Hematocrit 39.1 % (37-47); Hemoglobin 13.3 g/dL (12.0-15.0); Lymphocyte # 1.92 X10^3/ul (0.83-4.51); Lymphocyte % 15.6 % (19-41); Mean Corpuscular Volume 91.1 fL (81-99); Mean Platelet Vol. 9.7 fl (6.2-12.0); Monocyte# 1.08 X10^3/uL; Monocyte% 8.8 % (0-10); NRBC Flagged by Analyzer 0 % (0-5); Neutrophil # 9.07 X10^3/uL (2.7-7.7); Neutrophil % 73.7 % (47-70); Platelet Count 181 K/mm3 (150-450); RBC Distribution Width CV 12.5 % (11.6-14.6); RBC Distribution Width SD 41.4 fl (35.1-43.9); Red Blood Count 4.29 M/mm3 (4.2-5.4); White Blood Count 12.3 K/mm3 (4.4-11.0)
[2021-09-11 23:14] LABS: Anion Gap 6 (5-15); BUN 22 mg/dL (7-18); BUN/Creat Ratio 22.2 RATIO (10-20); Calcium,Total 8.8 mg/dL (8.5-10.1); Chloride 108 mmol/L (98-107); Creatinine, Serum 0.99 mg/dL (0.55-1.02); EST Glomerular Filtration Rate 59 mL/min (>60); Est Glom Filt Rate - Afr Amer 71 mL/min (>60); Estimated Creatinine Clearance 48.09 ml/min; Glucose 107 mg/dL (74-106); Potassium 3.8 mmol/L (3.5-5.1); Sodium Level 140 mmol/L (136-145); Troponin-I HS < 3 pg/mL (3.0-54.0)
[2021-09-11 23:20] VITALS: BP 125/60; PULSE 63; RESP 18; O2SAT 98
[2021-09-11] MEDS: traMADol 50 MG Tablet PO (23:20)
--- NOTE | 2021-09-11 23:46 | CT_ITS ---
EXAM: CT pulmonary angiogram. HISTORY: right chest pain, abnormal CXR. Upon discussion with the referring physician earlier the patient had PE during Covid infection in May and remains on Eloquis. TECHNIQUE: CTA Chest WO/W Contrast Injection. 1.25 mm axials, coronal and sagittal reconstructions, 15 mm coronal and sagittal maximum intensity projection reconstructions. DOSE REDUCTION: A dose reduction technique was utilized for this exam. COMPARISON: June 04, 2021, the patient had bulky predominantly right-sided PE on the prior exam. LIMITATIONS: None. HEART: Upper limits of normal, stable. AORTA: No aneurysm or dissection. LUNGS: There is a wedge-shaped juxtapleural zone of opacity with mild adjacent haziness in the right lateral upper lobe predominantly abutting the major fissure, measuring roughly 7.8 cm x 5.5 cm x 3.9 cm, very suspicious appearance for infarct but there are enhancing vessels, this may be due to subacute infarct with recanalized vessel or pneumonia. It is new from prior exam in May. There were some mild atelectatic changes in this location and elsewhere. Mild atelectatic changes in the right lung base. PULMONARY VESSELS: Normal. Previously seen PE have resolved and there are enhancing vessels extending to the wedge-shaped juxtapleural right middle lobe opacity. No evidence of acute PE or obvious webs. PLEURA: Normal. AIRWAYS: No significant narrowing or obstruction. MEDIASTINUM: Multiple small mediastinal lymph nodes, not necessarily pathologic by size criteria. UPPER ABDOMEN: Normal. BONES/SOFT TISSUES: Normal. OTHER: None. CONCLUSION: Moderate zone of juxtapleural wedge-shaped airspace disease in the lateral right upper lobe has appearance suggesting pneumonia versus subacute infarct with recanalized vessels. There are adjacent small enhancing vessels. No evidence of acute or significant residual or recurrent PE. Electronically Signed: Adela Berman MD at 0:57 EDT , CT/CTA Chest W/WO Contrast
[2021-09-12 00:19] VITALS: BP 125/62; PULSE 66; RESP 14; O2SAT 99
[2021-09-12 01:13] VITALS: BP 130/62; PULSE 63; RESP 20; O2SAT 94
[2021-09-12] MEDS: Enoxaparin 80 MG/0.8 ML Syringe SC (01:57)
[2021-09-12 02:00] VITALS: BP 125/81; PULSE 60; RESP 20; O2SAT 97
[2021-09-12 02:01] LABS: D-Dimer Quantitative (DVT/PE) 0.31 FEU/ug/m (0.27-0.49)
[2021-09-12] MEDS: traMADol 50 MG Tablet PO (02:26)
[2021-09-12] MEDS: Amox/Clavulanate 500 MG Tablet PO (02:27)
[2021-09-12 02:32] VITALS: BP 115/76; PULSE 64; RESP 16; O2SAT 97
== END 2021-09-12 02:45 | disposition home or self-care (01) ==
PROVIDERS: Emergency Provider Emergency Medicine; PCP Internal Medicine; Visit Provider Emergency Medicine
DX: J18.9 Pneumonia, unspecified organism (principal); R07.81 Pleurodynia; I10 Essential (primary) hypertension; J45.909 Unspecified asthma, uncomplicated; K21.9 Gastro-esophageal reflux disease without esophagitis; Z79.01 Long term (current) use of anticoagulants; Z79.899 Other long term (current) drug therapy; Z86.16 Personal history of COVID-19; Z86.711 Personal history of pulmonary embolism
CPT/HCPCS: 71045; 71275; 80048; 84484; 85025; 85379; 93005; 96360; 96361; 96372; 99285; J7040; Q9967; A4216

== ENCOUNTER 2022-03-04 23:10 | Emergency (ER) | payer MEDICARE, SELFPAY ==
[2022-03-04 23:10] VITALS: BP 140/51; PULSE 70; RESP 19; TEMP 37.1; BMI 30.7
[2022-03-05] VITALS (11 sets, daily range): BP systolic 108–146; BP diastolic 60–64; PULSE 60–67; RESP 15–17; TEMP 36.8–37.1; O2SAT 90–99
--- NOTE | 2022-03-05 00:05 | CT_ITS ---
STUDY: CTA CHEST REASON FOR EXAM: Female, 71 years old. PE RADIATION DOSAGE (If Supplied By Facility): CTDIvol = ( 11.38 ) mGy, DLP = ( 431.38 ) mGycm TECHNIQUE: The examination was performed with the intravenous administration of IV 100mL Isovue-370. Post-processing of the angiographic images was performed, with multiplanar reformation and 3D reconstruction. Individualized dose optimization techniques were used for this CT. COMPARISON: CT chest 09/12/2021 FINDINGS: LUNGS: Anterior left upper lobe peripheral consolidative opacity with surrounding groundglass and left basal groundglass and consolidative opacities, consistent with infection. And bronchial impaction in the right upper lobe, similar compared to the prior. Biapical pleural/parenchymal scarring. Left upper lobe 4 mm pulmonary nodule again noted (2-80). AORTA/GREAT VESSELS: No aneurysm.. PULMONARY VESSELS: Normal. PLEURA: Normal. MEDIASTINUM: Normal. UPPER ABDOMEN: Normal. BONES/SOFT TISSUES: Degenerative changes visualized spine, similar compared to prior. No acute osseous abnormality.. OTHER: None. CT/CTA Chest W/WO Contrast IMPRESSION: 1. No pulmonary embolism to the subsegmental level. 2. Left upper and lower lobe opacities concerning for multifocal infection. Following clinical improvement repeat CT chest is recommended to exclude underlying lesion. 3. Left upper lobe 4 mm pulmonary nodule again seen. *Fleischner Society Recommendations (Radiology 2005;237:395-400.) (Follow-up and management of nodules smaller than 8 mm detected incidentally at non-screening CT. Newly detected indeterminate nodule in persons 35 years of age or older.) Low risk patient: Minimal or absent history of smoking and of other known risk factors. <= 4mm: No followup needed >4-6mm: Follow-up CT at 12 months, if unchanged - no further followup >6-8mm: Initial Follow-up CT at 6-12 months, then at 18-24 months if no change >8mm: Follow-up CT at 3, 9, and 24 months; FDG PET scan; and or biopsy High risk patient: History of smoking or of other known risk factors. <= 4mm: Follow-up CT at 12 months, if unchanged - no further followup >4-6mm: Initial Follow-up CT at 6-12 months, then at 18-24 months if no change >6-8mm: Initial Follow-up CT at 3-6 months, then at 9-12 and 24 months if no change >8mm: Follow-up CT at 3, 9, and 24 months; FDG PET scan; and or biopsy Note: Non-solid (ground-glass) or partly solid nodules may require longer follow-up to Electronically Signed: Keny Doherty MD at 1:34 EDT ,
--- NOTE | 2022-03-05 00:06 | EKG12_ITS ---
Test Reason : CP Blood Pressure : / mmHG Vent. Rate : 067 BPM Atrial Rate : 067 BPM P-R Int : 146 ms QRS Dur : 086 ms QT Int : 400 ms P-R-T Axes : 047 035 058 degrees QTc Int : 422 ms Normal sinus rhythm Normal ECG Confirmed by MENDOZA JACKMAN, BHUPENDRA ([id number]), slot editor ZAHIRA CONDON ([id number]) on 03/06/2022 11:05:49 AM Referred By: PL Confirmed By:BHUPENDRA DONALDSON MD
--- NOTE | 2022-03-05 00:07 | ED.VIS.CHEST ---
HPI History of Present Illness Chief Complaint: Chest Pain Informant: patient Narrative Narrative: Patient doesPatient presents with relatively sharp left-sided chest pain. She has some mild dyspnea with it. No diaphoresis nausea or vomiting. She states it does hurt to take a deep breath. No hemoptysis or coughing. She has been feeling fine until this started a few hours ago. Have a history of a pulmonary embolus back at the end of 2020 when she had COVID. She was on Eliquis for about 3 months but has been off of it since. No recent travel surgery immobilization or known family history of PEs. She has no leg pain or swelling. Other than the left-sided chest pain she has been feeling fine. [facility] Medical History Asthma Chronic cystitis Depression GERD (gastroesophageal reflux disease) Hypertension Pulmonary embolism Sleep apnea Home Medications apixaban 5 mg tablet (Eliquis) 10 mg PO Q12H #72 tabs 06/04/21 [Rx Last Taken Unknown] atenolol 50 mg tablet 50 mg PO DAILY 06/04/21 [History Last Taken Unknown] citalopram 20 mg tablet 20 mg PO DAILY 06/04/21 [History Last Taken Unknown] hydroxyzine HCl 25 mg tablet 25 mg PO DAILY 06/04/21 [History Last Taken Unknown] montelukast 10 mg tablet (Singulair) 10 mg PO QHS 06/04/21 [History Last Taken Unknown] pantoprazole 40 mg tablet,delayed release (Protonix) 40 mg PO DAILY 06/04/21 [History Last Taken Unknown] triamterene 37.5 mg-hydrochlorothiazide 25 mg capsule 1 cap PO DAILY #0 caps 06/04/21 [Rx Last Taken Unknown] amoxicillin 500 mg-potassium clavulanate 125 mg tablet (Augmentin) 1 tab PO TID #30 tabs 09/12/21 [Rx Last Taken Unknown] tramadol 50 mg tablet 50 mg PO Q4H PRN PRN Pain 3 days #18 tabs 09/12/21 [Rx Last Taken Unknown] levofloxacin 500 mg tablet 500 mg PO DAILY #7 tabs 03/05/22 [Rx Last Taken Unknown] oxycodone-acetaminophen 5 mg-325 mg tablet (Percocet) 1 tab PO Q6H PRN pain 3 days #10 tabs 03/05/22 [Rx Last Taken Unknown] Allergy/AdvReac Type Severity Reaction Status Date / Time No Known Allergies Allergy Verified 03/04/22 23:15 Surgical History History of cholecystectomy Social History Smoking Status: Never smoker ROS ROS ED Constitutional Constitutional ED: Denies chills, fever(s) or subjective Eyes Eyes: Denies change in vision ENT ENT ED: Denies rhinorrhea or sore throat Cardiovascular Cardiovascular: Reports as per HPI Respiratory/Chest Respiratory/Chest: Reports dyspnea; Denies cough Gastrointestinal Gastrointestinal: Denies nausea or vomiting Genitourinary Genitourinary ED: Denies hematuria Musculoskeletal Musculoskeletal: Reports other Details: She does have some back pain but this is chronic and not new or different in any way. ; Denies arthralgias or myalgias Integumentary Denies rash Neurologic Neurologic: Denies headache(s), paresthesias or weakness Endocrine Endocrinology: Denies polydipsia or polyuria Hematologic/Lymphatic Hematologic/Lymphatic: Denies easy bleeding or easy bruising Allergic/Immunologic Allergic/Immunologic ED: Denies urticaria EXAM Physical Exam Const Vital Signs: 03/04/22 23:10 03/04/22 23:15 03/05/22 00:14 Temperature 98.7 F 98.7 F Temperature Source Temporal Temporal Pulse Rate 70 64 Respiratory Rate 19 H 16 Respiratory Effort Normal Non-Labored Respiratory Pattern Normal Blood Pressure 140/51 H 143/64 H Blood Pressure Mean 80 90 Pulse Ox 97 Oxygen Delivery Method Room Air Room Air 03/05/22 01:14 03/05/22 01:38 03/05/22 02:00 Temperature 98.5 F 98.7 F Temperature Source Temporal Temporal Pulse Rate 64 60 Respiratory Rate 15 17 17 Respiratory Effort Respiratory Pattern Blood Pressure 141/62 H 146/60 H Blood Pressure Mean 88 88 Pulse Ox 95 99 Oxygen Delivery Method Nasal Cannula Room Air 03/05/22 02:00 Temperature Temperature Source Pulse Rate Respiratory Rate 17 Respiratory Effort Respiratory Pattern Blood Pressure Blood Pressure Mean Pulse Ox Oxygen Delivery Method Positive well nourished and well developed General Appearance ED: well developed and NAD HEENT Reports moist mucous membranes Eyes PERRL Neck no lymphadenopathy, supple and no JVD Chest Wall inspection of chest normal Chest Narrative: Slight tenderness to palpation of the chest but it does not fully reproduce her symptoms. Resp normal respiratory effort and clear to auscultation bilaterally Resp Narrative: Respiratory effort seems normal. But when she takes a deep breath she does get some discomfort. Her lungs do sound clear though on exam. Auscultation: Negative for rales, rhonchi or wheezes Cardio regular rate, regular rhythm and no murmurs Rate: other Other Details: No muffled heart tones. Peripheral pulses are normal. GI normal to inspection, nondistended, normoactive bowel sounds and soft to palpation Back/Spine no CVA tenderness Extremity normal to inspection Extremity Narrative: No cords edema or tenderness General Extremety ED: Negative for pulses abnormal General Extremity: Negative for pulses abnormal Neuro Sensorium / Orientation: awake and alert Psych mental status grossly normal Skin no rashes or lesions noted MDM MDM MDM Narrative Medical decision making narrative: Patient CT showed opacities. Her white count was elevated at 15 8. Electrolytes were unremarkable. Troponin was unremarkable. I talked to the patient about this. She now does state that she had chills all day prior to this. She felt hot and cold but did not check the temperature. But she has not really been coughing. I think these chills may have been some fevers and rigors. I think the pain is likely from pleural irritation. No sign of pulmonary embolus. With her chills, elevated white count and CT findings I think this is appropriate to treat with antibiotics. We discussed return reasons and she does need follow-up. We will have to make sure that these opacities resolve. If not they may need further imaging or definition. Lab Data Attestation: I reviewed the patient's lab results. Labs: Laboratory Results - last 24 hr 03/04/22 03/04/22 23:26 23:26 WBC 15.8 H RBC 3.96 L Hgb 13.0 Hct 35.8 L MCV 90.4 MCH 32.8 H MCHC 36.3 H RDW Std Deviation 42.4 RDW Coeff of Heidy 12.7 Plt Count 252 MPV 10.7 Immature Gran % (Auto) 0.800 Neut % (Auto) 71.9 H Lymph % (Auto) 16.0 L Cabell % (Auto) 10.7 H Eos % (Auto) 0.3 Baso % (Auto) 0.3 Absolute Neuts (auto) 11.3 H Absolute Lymphs (auto) 2.52 Nucleated RBC % 0 Diff Path Review May foll Sodium 140 Potassium 3.5 Chloride 105 Carbon Dioxide 25.0 Anion Gap 10 BUN 13 Creatinine 0.97 Estim Creat Clear Calc 49.08 Est GFR (MDRD) Af Amer 73 Est GFR (MDRD) Non-Af 60 BUN/Creatinine Ratio 13.4 Glucose 132 H Calcium 8.9 Troponin I High Sens 5 Radiography Diagnostic Testing: Clinical Impression(s) from Imaging Studies Chest CTA 03/05/22 00:05 IMPRESSION: 1. No pulmonary embolism to the subsegmental level. 2. Left upper and lower lobe opacities concerning for multifocal infection. Following clinical improvement repeat CT chest is recommended to exclude underlying lesion. 3. Left upper lobe 4 mm pulmonary nodule again seen. *Fleischner Society Recommendations (Radiology 2005;[id number].) (Follow-up and management of nodules smaller than 8 mm detected incidentally at non-screening CT. Newly detected indeterminate nodule in persons 35 years of age or older.) Low risk patient: Minimal or absent history of smoking and of other known risk factors. <= 4mm: No followup needed >4-6mm: Follow-up CT at 12 months, if unchanged - no further followup >6-8mm: Initial Follow-up CT at 6-12 months, then at 18-24 months if no change >8mm: Follow-up CT at 3, 9, and 24 months; FDG PET scan; and or biopsy High risk patient: History of smoking or of other known risk factors. <= 4mm: Follow-up CT at 12 months, if unchanged - no further followup >4-6mm: Initial Follow-up CT at 6-12 months, then at 18-24 months if no change >6-8mm: Initial Follow-up CT at 3-6 months, then at 9-12 and 24 months if no change >8mm: Follow-up CT at 3, 9, and 24 months; FDG PET scan; and or biopsy Note: Non-solid (ground-glass) or partly solid nodules may require longer follow-up to Electronically Signed: Keny Doherty MD at 1:34 EDT , CT looked at by me and read by radiology shows no pulmonary embolus. There were some left upper and lower lobe opacities. Stable 4 mm pulmonary nodule was seen. EKG Initial EKG: Comments: EKG done for chest pain read by me shows a normal sinus rhythm with overall rate of 67. No ventricular ectopy. No acute ST elevation or depression. FL interval, QRS duration and QTc are normal. Overall this looks similar to August of this year Discharge Plan Triage Chief Complaint: Chest Pain ED Provider: Rocky Gutiérrez Dx/Rx/DC Orders Clinical Impression: Community acquired pneumonia Instructions: ED Pneumonia (Adult) Prescriptions: New oxycodone-acetaminophen [Percocet] 5-325 mg tablet 1 tab PO Q6H PRN (Reason: pain) 3 Days Qty: 10 0RF levofloxacin [levofloxacin] 500 mg tablet 500 mg PO DAILY Qty: 7 0RF No Action pantoprazole [Protonix] 40 mg Tablet,Delayed Release (Dr/Ec) 40 mg PO DAILY montelukast [Singulair] 10 mg Tablet 10 mg PO QHS citalopram 20 mg Tablet 20 mg PO DAILY hydroxyzine HCl 25 mg Tablet 25 mg PO DAILY atenolol 50 mg Tablet 50 mg PO DAILY Eliquis 5 mg Tablet 10 mg PO Q12H Qty: 72 0RF Rx Instructions: take 10mg (2 pills) twice a day for 6 days and then take 5mg (1 pill) twice daily triamterene-hydrochlorothiazid 37.5-25 mg Capsule 1 cap PO DAILY Qty: 0 0RF Rx Instructions: Hold if systolic BP less than 100 amoxicillin-pot clavulanate [Augmentin] 500-125 mg tablet 1 tab PO TID Qty: 30 0RF tramadol 50 MG tablet 50 mg PO Q4H PRN PRN (Reason: Pain) 3 Days Qty: 18 0RF Primary Care Provider: Ken Quarles Referrals: Ken Quarles MD [Primary Care Provider] - 3-5 Days Disposition Disposition: Home, Self Care
[2022-03-05 00:23] LABS: Absolute Lymphocyte Count 2.52 X10^3/uL (0.83-4.51); Absolute Neutrophil Count 11.3 X10^3/uL (2.0-7.7); Basophil# 0.04 X10^3/uL; Basophil% 0.3 % (0-1); Eosinophil# 0.04 X10^3/uL; Eosinophils% 0.3 % (0-5); Hematocrit 35.8 % (37-47); Lymphocyte # 2.52 X10^3/ul (0.83-4.51); Mean Corp Hgb Conc 36.3 g/dL (32-36); Mean Corpuscular Hgb 32.8 pg (27.0-32.0); Mean Corpuscular Volume 90.4 fL (81-99); Mean Platelet Vol. 10.7 fl (6.2-12.0); Monocyte# 1.69 X10^3/uL; Monocyte% 10.7 % (0-10); NRBC Flagged by Analyzer 0 % (0-5); Neutrophil # 11.34 X10^3/uL (2.7-7.7); Neutrophil % 71.9 % (47-70); POSITIVE DIFFERENTIAL YES; Platelet Count 252 K/mm3 (150-450); RBC Distribution Width CV 12.7 % (11.6-14.6); RBC Distribution Width SD 42.4 fl (35.1-43.9); Red Blood Count 3.96 M/mm3 (4.2-5.4); White Blood Count 15.8 K/mm3 (4.4-11.0)
[2022-03-05 00:24] LABS: Differential Indicated SCAN CRITERIA MET
[2022-03-05 00:44] LABS: Anion Gap 10 (5-15); BUN 13 mg/dL (7-18); BUN/Creat Ratio 13.4 RATIO (10-20); Calcium,Total 8.9 mg/dL (8.5-10.1); Chloride 105 mmol/L (98-107); Creatinine, Serum 0.97 mg/dL (0.55-1.02); EST Glomerular Filtration Rate 60 mL/min (>60); Est Glom Filt Rate - Afr Amer 73 mL/min (>60); Estimated Creatinine Clearance 49.08 ml/min; Glucose 132 mg/dL (74-106); Potassium 3.5 mmol/L (3.5-5.1); Sodium Level 140 mmol/L (136-145); Troponin-I HS 5 pg/mL (3.0-54.0)
[2022-03-05] MEDS: Morphine 4 MG/ML Syringe IV (01:41)
[2022-03-05] MEDS: levoFLOXacin 750 MG Tablet PO (03:13)
[2022-03-05] MEDS: HYDROmorphone 0.5 MG/0.5 ML SYRINGE IV (03:14)
[2022-03-05 13:09] LABS: Pathologist Review Reviewed
== END 2022-03-05 03:47 | disposition home or self-care (01) ==
PROVIDERS: Emergency Provider Emergency Medicine; PCP Internal Medicine; Visit Provider Emergency Medicine
DX: J18.9 Pneumonia, unspecified organism (principal); I10 Essential (primary) hypertension; R06.00 Dyspnea, unspecified; J45.909 Unspecified asthma, uncomplicated; K21.9 Gastro-esophageal reflux disease without esophagitis; G47.30 Sleep apnea, unspecified; F32.A Depression, unspecified; Z79.01 Long term (current) use of anticoagulants; Z79.899 Other long term (current) drug therapy; Z86.16 Personal history of COVID-19; Z86.711 Personal history of pulmonary embolism
CPT/HCPCS: 71275; 80048; 84484; 85025; 93005; 96361; 96374; 96375; 99283; J7030; Q9967; A4216

== ENCOUNTER 2022-11-01 14:23 | Emergency (ER) | payer MEDICARE, SELFPAY ==
[2022-11-01 14:24] VITALS: BP 138/95; PULSE 53; RESP 16; TEMP 36.8; O2SAT 97; BMI 32.3
--- NOTE | 2022-11-01 14:50 | EX.ED.DYSGE1 ---
HPI <MEAGAN Puente - Last Filed: 11/01/22 16:33> History of Present Illness Chief Complaint: Bite Narrative Narrative: Patient presenting today after being bit by her household cat on her right hand on Friday. She states that she was playing with her household cat and was getting a little rough and the cat bit her hand. Her cat does go outside at times and has not had an updated rabies vaccine since 2019. However, she reports that her cat has been behaving normally. She denies any fever or chills. She reports that her tetanus is not up-to-date. PFSH <MEAGAN Puente - Last Filed: 11/01/22 16:33> [facility] Medical History Asthma Chronic cystitis Depression GERD (gastroesophageal reflux disease) Hypertension Pulmonary embolism Sleep apnea Home Medications apixaban 5 mg tablet (Eliquis) 10 mg PO Q12H #72 tabs 06/04/21 [Rx Last Taken Unknown] atenolol 50 mg tablet 50 mg PO DAILY 06/04/21 [History Last Taken Unknown] citalopram 20 mg tablet 20 mg PO DAILY 06/04/21 [History Last Taken Unknown] hydroxyzine HCl 25 mg tablet 25 mg PO DAILY 06/04/21 [History Last Taken Unknown] montelukast 10 mg tablet (Singulair) 10 mg PO QHS 06/04/21 [History Last Taken Unknown] pantoprazole 40 mg tablet,delayed release (Protonix) 40 mg PO DAILY 06/04/21 [History Last Taken Unknown] triamterene 37.5 mg-hydrochlorothiazide 25 mg capsule 1 cap PO DAILY #0 caps 06/04/21 [Rx Last Taken Unknown] amoxicillin 500 mg-potassium clavulanate 125 mg tablet (Augmentin) 1 tab PO TID #30 tabs 09/12/21 [Rx Last Taken Unknown] tramadol 50 mg tablet 50 mg PO Q4H PRN PRN Pain 3 days #18 tabs 09/12/21 [Rx Last Taken Unknown] levofloxacin 500 mg tablet 500 mg PO DAILY #7 tabs 03/05/22 [Rx Last Taken Unknown] oxycodone-acetaminophen 5 mg-325 mg tablet (Percocet) 1 tab PO Q6H PRN pain 3 days #10 tabs 03/05/22 [Rx Last Taken Unknown] amoxicillin 875 mg-potassium clavulanate 125 mg tablet 1 tab PO Q12H 10 days #20 tabs 11/01/22 [Rx Last Taken Unknown] Allergy/AdvReac Type Severity Reaction Status Date / Time prednisone AdvReac Other Verified 11/01/22 14:26 Surgical History History of cholecystectomy Social History Smoking Status: Never smoker ROS <MEAGAN Puente - Last Filed: 11/01/22 16:33> ROS ED Constitutional Constitutional ED: Denies chills or fever(s) Cardiovascular Cardiovascular: Denies chest pain Respiratory/Chest Respiratory/Chest: Denies cough or dyspnea Gastrointestinal Gastrointestinal: Denies abdominal pain, nausea or vomiting Musculoskeletal Musculoskeletal: Denies arthralgias or myalgias Integumentary Denies abscess or rash Neurologic Neurologic: Denies weakness EXAM <MEAGAN Puente - Last Filed: 11/01/22 16:33> Physical Exam Const Vital Signs: 11/01/22 14:24 Temperature 98.3 F Temperature Source Temporal Pulse Rate 53 L Respiratory Rate 16 Blood Pressure 138/95 H Blood Pressure Mean 109 Pulse Ox 97 Oxygen Delivery Method Room Air Positive well nourished, well developed and no apparent distress General Appearance ED: well developed HEENT Reports normocephalic and head/scalp atraumatic Mouth ED: Yes moist mucous membranes normal Eyes PERRL and EOMs intact bilaterally Neck full ROM and supple Chest Wall inspection of chest normal Resp normal respiratory effort and clear to auscultation bilaterally Cardio regular rate and regular rhythm GI soft to palpation, non-tender, non-distended and no masses Back/Spine normal ROM and normal to inspection Extremity normal to inspection and full ROM Extremity Narrative: Multiple small bite wounds that have scabbed and are not actively bleeding to the dorsal aspect of the right hand. Dorsal aspect of right hand mildly edematous with erythema spreading from the MCP joints up to the dorsal aspect of the right forearm. No lymphatic streaking. Full range of motion to the right wrist and fingers. Neuro oriented x3, CN's II-XII intact bilaterally, moves all extremities, no focal motor deficits and no sensory deficits noted Sensorium / Orientation: awake and alert Psych mental status grossly normal and thought process normal Skin no rashes or lesions noted and no wounds <Dr. Kellie Black MD - Last Filed: 11/01/22 15:34> Physical Exam Const Vital Signs: 11/01/22 14:24 Temperature 98.3 F Temperature Source Temporal Pulse Rate 53 L Respiratory Rate 16 Blood Pressure 138/95 H Blood Pressure Mean 109 Pulse Ox 97 Oxygen Delivery Method Room Air [facility] <MEAGAN Puente - Last Filed: 11/01/22 16:33> [facility] Narrative Medical decision making narrative: Patient presenting today due to a cat bite to her right hand that occurred on Friday. She is well-appearing and in no acute distress. She is afebrile. She does have multiple abrasions to the dorsal aspect of her right hand as well as her right forearm. She does have cellulitis. She will be started on Augmentin and has been given strict return precautions. She does have full range of motion in her hand, there is no concern for tendon injury. Tetanus has been updated. She will be discharged home in stable condition and is comfortable with plan. <Dr. Kellie Black MD - Last Filed: 11/01/22 15:34> [facility] Treatment and Re-Evaluation :: Patient seen and evaluated with ISABELA. I personally interviewed and examined the patient. I was involved in all aspects of patient's orders, interpretation of results, and treatment. Patient presents with redness and swelling to the right hand. She was bit by her kitten 2 days ago. She states she cleansed the area well and placed antibiotic ointment. She states pain is improving but today she did notice some redness spreading onto her forearm. Patient sitting in bed no acute distress. Nontoxic-appearing. Head and neck examination unremarkable. Right upper extremity examination reveals scabbed lesions over the back of the right hand and along the ulnar side of the hand. There are few linear abrasions noted on the dorsal forearm. She does have mild edema with erythema noted spreading up onto the distal forearm. She has no focal tenderness with palpation over the extensor tendons. She has full range of motion of all digits. Tetanus update provided. Area of erythema outlined with surgical marker. Patient be started on antibiotics with strict instructions for any worsening to return to the hospital for IV antibiotics. She voices understanding and agreement. Discharge Plan Triage Chief Complaint: Bite ED Midlevel Provider: Jonna Anderson ED Provider: Kellie Black Dx/Rx/DC Orders Clinical Impression: Cat bite, Cellulitis of right hand Instructions: ED Animal Bite (General), ED Cellulitis Prescriptions: New amoxicillin-pot clavulanate 875-125 mg tablet 1 tab PO Q12H 10 Days Qty: 20 0RF No Action pantoprazole [Protonix] 40 mg Tablet,Delayed Release (Dr/Ec) 40 mg PO DAILY montelukast [Singulair] 10 mg Tablet 10 mg PO QHS citalopram 20 mg Tablet 20 mg PO DAILY hydroxyzine HCl 25 mg Tablet 25 mg PO DAILY atenolol 50 mg Tablet 50 mg PO DAILY Eliquis 5 mg Tablet 10 mg PO Q12H Qty: 72 0RF Rx Instructions: take 10mg (2 pills) twice a day for 6 days and then take 5mg (1 pill) twice daily triamterene-hydrochlorothiazid 37.5-25 mg Capsule 1 cap PO DAILY Qty: 0 0RF Rx Instructions: Hold if systolic BP less than 100 amoxicillin-pot clavulanate [Augmentin] 500-125 mg tablet 1 tab PO TID Qty: 30 0RF tramadol 50 MG tablet 50 mg PO Q4H PRN PRN (Reason: Pain) 3 Days Qty: 18 0RF oxycodone-acetaminophen [Percocet] 5-325 mg tablet 1 tab PO Q6H PRN (Reason: pain) 3 Days Qty: 10 0RF levofloxacin [levofloxacin] 500 mg tablet 500 mg PO DAILY Qty: 7 0RF Primary Care Provider: Ken Quarles Referrals: Ken Quarles MD [Primary Care Provider] - 3-5 Days Activity Restrictions/Additional Instructions: Take antibiotics as prescribed. Please follow-up with your PCP and return for any worsening of symptoms. Disposition Disposition: Home, Self Care Discharge Date/Time: 11/01/22 15:48
[2022-11-01] MEDS: Diphth,Pertuss(Acell),Tet Vac 0.5 ML Vial IM (15:31)
== END 2022-11-01 15:48 | disposition home or self-care (01) ==
LOC: ED 15:45
PROVIDERS: Emergency Provider Emergency Medicine; PCP Internal Medicine; Visit Provider Emergency Medicine
DX: S61.451A Open bite of right hand, initial encounter (principal); L03.113 Cellulitis of right upper limb; S60.511A Abrasion of right hand, initial encounter; S50.811A Abrasion of right forearm, initial encounter; W55.01XA Bitten by cat, initial encounter; Z23 Encounter for immunization; I10 Essential (primary) hypertension; J45.909 Unspecified asthma, uncomplicated; K21.9 Gastro-esophageal reflux disease without esophagitis; G47.30 Sleep apnea, unspecified; Z79.01 Long term (current) use of anticoagulants; Z79.899 Other long term (current) drug therapy
CPT/HCPCS: 90471; 90715; 99283

== ENCOUNTER 2024-06-27 20:45 | Emergency (ER) | payer MEDICARE, SELFPAY ==
[2024-06-27 20:45] VITALS: BP 138/62; PULSE 65; RESP 18; TEMP 36.4; O2SAT 98
[2024-06-27 20:52] VITALS: BMI 31.9
--- NOTE | 2024-06-27 20:52 | EDS_ITS ---
HPI History of Present Illness Chief Complaint: Chest Pain Informant: patient Onset/Context/Timing Onset: Hours (2) Activity at onset: sudden Timing: Continuous Quality: Positive for Sharp and Stabbing Location: Left Chest Worsened By: Nothing Relieved By: Nothing Associated Symptoms: Positive for Dyspnea, Cough and Lightheadedness; Negative for Nausea, Vomiting, Diaphoresis, Fever, Acid Reflux or Palpitations Narrative Narrative: Patient presents with left-sided chest pain that began 2 hours prior to arrival. Patient states it began rather suddenly. Patient describes it as sharp and stabbing. Patient states it is over the left lower chest and radiates up into her neck. Patient states nothing makes it worse and nothing makes it better. Patient admits to some shortness of breath and cough. Patient also admits to some lightheadedness. Patient did have a recent plane trip to [place]. Patient does have a history of prior pulmonary embolism. Patient is not currently on any anticoagulants. CVD Risk Factors: Positive for Hypertension and Hypercholesterolemia; Negative for Diabetes, Family History 1' </=55 or Smoking PE Risk Factors: Positive for Recent Travel/Surgery and Prior DVT or PE; Negative for Recent Immobilization, Cancer or OCP + Smoking + >/=35 PFSH PFSH Medical History Pulmonary embolism Chronic cystitis Depression GERD (gastroesophageal reflux disease) Sleep apnea Hypertension Asthma Home Medications ?Medication ?Instructions ?Recorded ?Last Taken ?Type apixaban 5 mg tablet (Eliquis) 10 mg (2 x 5 mg) PO Q12H #72 tabs 06/04/21 Unknown Rx atenolol 50 mg tablet 50 mg PO DAILY 06/04/21 Unknown History citalopram 20 mg tablet 20 mg PO DAILY 06/04/21 Unknown History hydroxyzine HCl 25 mg tablet 25 mg PO DAILY 06/04/21 Unknown History montelukast 10 mg tablet 10 mg PO QHS 06/04/21 Unknown History (Singulair) pantoprazole 40 mg tablet,delayed 40 mg PO DAILY 06/04/21 Unknown History release (Protonix) triamterene 37.5 1 cap PO DAILY #0 caps 06/04/21 Unknown Rx mg-hydrochlorothiazide 25 mg capsule amoxicillin 500 mg-potassium 1 tab PO TID #30 tabs 09/12/21 Unknown Rx clavulanate 125 mg tablet (Augmentin) tramadol 50 mg tablet 50 mg PO Q4H PRN PRN Pain 3 days 09/12/21 Unknown Rx #18 tabs levofloxacin 500 mg tablet 500 mg PO DAILY #7 tabs 03/05/22 Unknown Rx oxycodone-acetaminophen 5 mg-325 1 tab PO Q6H PRN pain 3 days #10 03/05/22 Unknown Rx mg tablet (Percocet) tabs amoxicillin 875 mg-potassium 1 tab PO Q12H 10 days #20 tabs 11/01/22 Unknown Rx clavulanate 125 mg tablet atorvastatin 20 mg tablet 20 mg PO QHS cholesterol 06/27/24 Unknown History azithromycin 250 mg tablet 250 mg PO DAILY #4 TABLETS 06/27/24 Unknown Rx hydrocodone-acetaminophen 5-325mg 1 tab PO Q6H PRN PRN Pain 3 days 06/27/24 Unknown Rx 5mg-325mg #10 TABLETS nitrofurantoin macrocrystal 100 mg 100 mg DAILY 06/27/24 Unknown History capsule Allergy/AdvReac Type Severity Reaction Status Date / Time prednisone AdvReac Other Verified 06/27/24 20:45 Surgical History History of cholecystectomy Social History Smoking Status: Never smoker ROS ROS ED Constitutional Constitutional ED: Denies chills or fever(s) Eyes Eyes: Denies blurry vision or change in vision ENT ENT ED: Denies rhinorrhea or sore throat Cardiovascular Cardiovascular: Reports chest pain; Denies palpitations Respiratory/Chest Respiratory/Chest: Reports cough and dyspnea Gastrointestinal Gastrointestinal: Denies nausea or vomiting Genitourinary Genitourinary ED: Denies dysuria or hematuria Musculoskeletal Musculoskeletal: Reports neck pain; Denies back pain Integumentary Denies abscess or rash Neurologic Neurologic: Denies headache(s) or weakness Allergic/Immunologic Allergic/Immunologic ED: Denies mouth swelling or urticaria EXAM Physical Exam Const Vital Signs: 06/27/24 20:45 06/27/24 20:52 06/27/24 21:22 Temperature 97.6 F L Temperature Source Temporal Pulse Rate 65 Respiratory Rate 18 Respiratory Effort Normal Blood Pressure 138/62 H Blood Pressure Mean 87 Pulse Ox 98 98 Oxygen Delivery Method Room Air Room Air 06/27/24 21:45 06/27/24 22:00 06/27/24 23:00 Temperature Temperature Source Pulse Rate 73 59 L 55 L Respiratory Rate 20 H 12 18 Respiratory Effort Blood Pressure 136/60 H 111/52 L 109/54 L Blood Pressure Mean 85 71 72 Pulse Ox 97 97 95 Oxygen Delivery Method Room Air Room Air Room Air 06/28/24 00:00 Temperature Temperature Source Pulse Rate 62 Respiratory Rate 17 Respiratory Effort Blood Pressure 128/62 H Blood Pressure Mean 84 Pulse Ox 96 Oxygen Delivery Method Room Air Positive well nourished and well developed General Appearance ED: well developed and NAD HEENT Reports moist mucous membranes Neck supple and no JVD Resp normal respiratory effort and clear to auscultation bilaterally Cardio regular rate and regular rhythm GI soft to palpation, non-tender and non-distended Extremity normal to inspection General Extremety ED: Negative for edema or tenderness General Extremity: Negative for edema Neuro oriented x3, CN's II-XII intact bilaterally and no sensory deficits noted Sensorium / Orientation: awake and alert Motor Exam: strength 5/5 throughout Psych mental status grossly normal Heart Score History: Slightly/Non-Suspicious ECG: Normal Age: >/= 65 years Risk Factors: 1 or 2 Risk Factors Troponin: </= Normal Limit Score: 3 MDM MDM MDM Narrative Medical decision making narrative: Differential diagnosis includes pulmonary embolism, cardiac dysrhythmia, cardiac ischemia, pneumonia, pneumothorax, pleural effusion, gastroesophageal reflux disease, musculoskeletal pain, and anxiety. EKG will be obtained to assess for cardiac dysrhythmia and cardiac ischemia. CBC will be obtained to assess for leukocytosis and anemia. Basic metabolic profile will be obtained to assess for electrolyte abnormality and renal function. High-sensitivity troponin will be obtained to assess for cardiac ischemia. 2-hour repeat high-sensitivity troponin will be obtained to assess for ongoing cardiac ischemia. CTA of the chest will be obtained to assess for pulmonary embolism. Lab Data Attestation: I reviewed the patient's lab results. Lab results narrative: CBC was reviewed and was within normal limits. Basic metabolic profile was reviewed. Potassium is slightly low at 3.2. The remainder is within normal limits. Initial high-sensitivity troponin was reviewed and was normal at 6. 2- hour repeat high-sensitivity troponin was reviewed and was normal at 6. Labs: Laboratory Results - last 24 hr 06/27/24 06/27/24 21:00 23:39 WBC 10.9 RBC 4.31 Hgb 13.5 Hct 40.8 MCV 94.7 MCH 31.3 MCHC 33.1 RDW Std Deviation 42.8 RDW Coeff of Heidy 12.3 Plt Count 201 MPV 9.9 Immature Gran % (Auto) 0.400 Neut % (Auto) 64.8 Lymph % (Auto) 21.3 [place] % (Auto) 10.9 H Eos % (Auto) 2.1 Baso % (Auto) 0.5 Absolute Neuts (auto) 7.0 Absolute Lymphs (auto) 2.31 Nucleated RBC % 0 Sodium 140 Potassium 3.2 L Chloride 104 Carbon Dioxide 29.0 Anion Gap 6 BUN 17 Creatinine 0.98 Estim Creat Clear Calc 54.89 Est GFR (MDRD) Af Amer 71 Est GFR (MDRD) Non-Af 59 L BUN/Creatinine Ratio 17.3 Glucose 101 Calcium 9.4 Troponin I High Sens 6 6 Radiography CTA PE Study: No Evidence of PE and No Evidence of Dissection Diagnostic Testing: Clinical Impression(s) from Imaging Studies Chest CTA 06/27/24 21:19 IMPRESSION: No evidence of acute pulmonary emboli to the segmental level. Lingular consolidation versus atelectasis. 3 mm pulmonary nodule in left upper lobe. Per Fleischner criteria, an optional follow-up chest CT in one year may be obtained. Electronically Signed: Darnell Wilson MD at 22:16 EST , CTA of the chest was obtained. There is no evidence of pulmonary emboli. There is a lingular consolidation versus atelectasis. There is also a 3 mm pulmonary nodule in the left upper lobe. This was interpreted by the radiologist was also independently reviewed by myself. EKG Initial EKG: Attestation: I personally reviewed and interpreted this EKG as follows: Interpretation: Sinus Rhythm (62) and No Acute Injury Pattern Comments: EKG was obtained. On my independent interpretation, it showed a normal sinus rhythm with a rate of 62. UT interval, QRS interval, and QTc intervals were all normal. [place] was normal. There are no acute ST or T wave changes. Prior EKG tracings: available for review Prior: Unchanged (03/04/2022) Treatment and Re-Evaluation :: Patient was given aspirin. Patient was given morphine. Patient was feeling better after this. Patient was advised of her findings. Patient was given a dose of Zithromax here. Patient was given a dose of [place]. Patient was given prescriptions for Zithromax and [place]. Patient was instructed to take 10-15 deep breaths every hour while awake. Patient was instructed to follow-up with her primary care physician in 5 to 7 days. Patient understood and was agreeable with the plan. All questions were answered. Discharge Plan Triage Chief Complaint: Chest Pain ED Provider: Reymundo Sterling Dx/Rx/DC Orders Clinical Impression: Pneumonia, Pleurisy Instructions: ED Pleurisy, ED Pneumonia (Adult) Prescriptions: New azithromycin 250 mg tablet 250 mg PO DAILY Qty: 4 0RF hydrocodone-acetaminophen 5-325 mg tablet 1 tab PO Q6H PRN PRN (Reason: Pain) 3 Days Qty: 10 0RF No Action pantoprazole [Protonix] 40 mg Tablet,Delayed Release (Dr/Ec) 40 mg PO DAILY montelukast [Singulair] 10 mg Tablet 10 mg PO QHS citalopram 20 mg Tablet 20 mg PO DAILY hydroxyzine HCl 25 mg Tablet 25 mg PO DAILY atenolol 50 mg Tablet 50 mg PO DAILY Eliquis 5 mg Tablet 10 mg PO Q12H Qty: 72 0RF Rx Instructions: take 10mg (2 pills) twice a day for 6 days and then take 5mg (1 pill) twice daily triamterene-hydrochlorothiazid 37.5-25 mg Capsule 1 cap PO DAILY Qty: 0 0RF Rx Instructions: Hold if systolic BP less than 100 amoxicillin-pot clavulanate [Augmentin] 500-125 mg tablet 1 tab PO TID Qty: 30 0RF tramadol 50 MG tablet 50 mg PO Q4H PRN PRN (Reason: Pain) 3 Days Qty: 18 0RF oxycodone-acetaminophen [Percocet] 5-325 mg tablet 1 tab PO Q6H PRN (Reason: pain) 3 Days Qty: 10 0RF levofloxacin [levofloxacin] 500 mg tablet 500 mg PO DAILY Qty: 7 0RF amoxicillin-pot clavulanate 875-125 mg tablet 1 tab PO Q12H 10 Days Qty: 20 0RF atorvastatin 20 mg tablet 20 mg PO QHS nitrofurantoin macrocrystal 100 mg capsule 100 mg DAILY Primary Care Provider: Ken Quarles Referrals: Ken Quarles MD [Primary Care Provider] - 5-7 Days Print Language: [place] Islander Disposition Disposition: Home, Self Care
--- NOTE | 2024-06-27 21:19 | CT_ITS ---
INDICATION: Dyspnea EXAMINATION: CTA Chest WO/W Contrast Injection TECHNIQUE: Helically acquired images were obtained of the chest following administration of IV contrast. A radiation dose optimization technique was used for this scan. 3D postprocessing images including MIPS were reviewed. IV Contrast dosage and agent: IV 100mL [id number] COMPARISON: None. FINDINGS: Lungs: Scattered subsegmental atelectasis. 3 mm pulmonary nodule in left upper lobe (image 21, series 2). Lingular consolidation versus atelectasis. Mediastinum: The heart is mildly enlarged. No mediastinal, hilar or axillary adenopathy. Mild aortic arch and coronary artery calcifications. No obvious filling defect seen within the visualized pulmonary arteries. Pleura: Unremarkable Bones/Soft tissues: There are diffuse degenerative changes of the spine. Upper abdomen: No visualized abnormalities in the upper abdomen. CT/CTA Chest W/WO Contrast IMPRESSION: No evidence of acute pulmonary emboli to the segmental level. Lingular consolidation versus atelectasis. 3 mm pulmonary nodule in left upper lobe. Per Fleischner criteria, an optional follow-up chest CT in one year may be obtained. Electronically Signed: Darnell Wilson MD at 22:16 EST ,
--- NOTE | 2024-06-27 21:19 | EKG12_ITS ---
Test Reason : CP Blood Pressure : */* mmHG Vent. Rate : 62 BPM Atrial Rate : 62 BPM P-R Int : 154 ms QRS Dur : 86 ms QT Int : 406 ms P-R-T Axes : 84 41 68 degrees QTcB Int : 412 ms Normal sinus rhythm Normal ECG When compared with ECG of 04-Mar-2022 23:15, No significant change was found Confirmed by GIORGI JACKMAN, ELZA ([id number]), boat ride operator [place] ([id number]) on 06/30/2024 9:38:12 AM Referred By: Reymundo Sterling Confirmed By: ELZA RAND MD
[2024-06-27 21:22] VITALS: O2SAT 98
[2024-06-27] MEDS: Aspirin 81 MG TAB.CHEW 324 MG PO (21:25)
[2024-06-27] MEDS: Morphine 4 MG/ML Syringe IV (21:26)
[2024-06-27 21:39] LABS: Absolute Lymphocyte Count 2.31 X10^3/uL (0.83-4.51); Basophil# 0.05 X10^3/uL; Basophil% 0.5 % (0-1); Eosinophil# 0.23 X10^3/uL; Eosinophils% 2.1 % (0-5); Hematocrit 40.8 % (37-47); Hemoglobin 13.5 g/dL (12.0-15.0); Lymphocyte # 2.31 X10^3/ul (0.83-4.51); Lymphocyte % 21.3 % (19-41); Mean Corp Hgb Conc 33.1 g/dL (32-36); Mean Corpuscular Hgb 31.3 pg (27.0-32.0); Mean Corpuscular Volume 94.7 fL (81-99); Mean Platelet Vol. 9.9 fl (6.2-12.0); Monocyte# 1.18 X10^3/uL; Monocyte% 10.9 % (0-10); NRBC Flagged by Analyzer 0 % (0-5); Neutrophil # 7.04 X10^3/uL (2.7-7.7); Neutrophil % 64.8 % (47-70); Platelet Count 201 K/mm3 (150-450); RBC Distribution Width CV 12.3 % (11.6-14.6); RBC Distribution Width SD 42.8 fl (35.1-43.9); Red Blood Count 4.31 M/mm3 (4.2-5.4); White Blood Count 10.9 K/mm3 (4.4-11.0)
[2024-06-27 21:45] VITALS: BP 136/60; PULSE 73; RESP 20; O2SAT 97
[2024-06-27 22:00] VITALS: BP 111/52; PULSE 59; RESP 12; O2SAT 97
[2024-06-27 22:09] LABS: Anion Gap 6 (5-15); BUN 17 mg/dL (7-18); BUN/Creat Ratio 17.3 RATIO (10-20); Calcium,Total 9.4 mg/dL (8.5-10.1); Chloride 104 mmol/L (98-107); Creatinine, Serum 0.98 mg/dL (0.55-1.02); EST Glomerular Filtration Rate 59 mL/min (>60); Est Glom Filt Rate - Afr Amer 71 mL/min (>60); Estimated Creatinine Clearance 54.89 ml/min; Glucose 101 mg/dL (74-106); Potassium 3.2 mmol/L (3.5-5.1); Sodium Level 140 mmol/L (136-145); Troponin-I HS (w/2H Reflex) 6 pg/mL (3.0-54.0)
[2024-06-27 23:00] VITALS: BP 109/54; PULSE 55; RESP 18; O2SAT 95
[2024-06-27 23:34] LABS: Reflex Troponin-HS? (from REC) Y
[2024-06-28] VITALS: BP 128/62; PULSE 62; RESP 17; O2SAT 96
[2024-06-28] MEDS: Azithromycin 250 MG Tablet 500 MG PO
[2024-06-28] MEDS: HYDROcodone Bitartrate/Apap 5/325 Tablet PO
[2024-06-28 00:03] LABS: Troponin-I HS 6 pg/mL (3.0-54.0)
[2024-06-28 00:30] VITALS: BP 135/74; PULSE 76; RESP 108; TEMP 36.7; O2SAT 97
== END 2024-06-28 00:31 | disposition home or self-care (01) ==
PROVIDERS: Emergency Provider Emergency Medicine; PCP Internal Medicine; Referring Provider Emergency Medicine; Visit Provider Emergency Medicine
DX: J18.9 Pneumonia, unspecified organism (principal); R09.1 Pleurisy; I10 Essential (primary) hypertension; E78.00 Pure hypercholesterolemia, unspecified; K21.9 Gastro-esophageal reflux disease without esophagitis; Z79.01 Long term (current) use of anticoagulants; Z79.899 Other long term (current) drug therapy; Z86.711 Personal history of pulmonary embolism; Z90.49 Acquired absence of other specified parts of digestive tract
CPT/HCPCS: 71275; 80048; 84484; 85025; 93005; 96374; 99283; Q9967; A4216

== ENCOUNTER 2024-11-14 10:52 | Emergency (ER) | payer MEDICARE, SELFPAY ==
[2024-11-14 10:52] VITALS: BP 141/70; PULSE 58; RESP 22; TEMP 36.5; O2SAT 97; BMI 31.6
--- NOTE | 2024-11-14 11:15 | EKG12_ITS ---
Test Reason : SOB Blood Pressure : */* mmHG Vent. Rate : 55 BPM Atrial Rate : 55 BPM P-R Int : 166 ms QRS Dur : 86 ms QT Int : 442 ms P-R-T Axes : 70 66 76 degrees QTcB Int : 422 ms Sinus bradycardia Otherwise normal ECG Confirmed by Roberto Valdes ([id number]), online editor ZAHIRA CONDON ([id number]) on 11/15/2024 11:00:17 AM Referred By: Confirmed By: Roberto Valdes
--- NOTE | 2024-11-14 11:16 | ED.VIS.DYS ---
HPI History of Present Illness Chief Complaint: Shortness of Breath Detail of Chief Complaint: Shortness of breath Informant: patient Narrative Narrative: Patient presents with shortness of breath that started about a month ago and progressively worsening. She complains of wheezing. She has history of asthma. She scheduled to see a back roll lathe operator in December. She denies fevers or chills or sweats. Denies chest pain. She tells me she had history of blood clots 2 years ago but currently not anticoagulated. She denies recent travel or surgery. Denies significant chest pain. Patient has been using her rescue inhaler but not getting much relief. [facility] Medical History Pulmonary embolism Chronic cystitis Depression GERD (gastroesophageal reflux disease) Sleep apnea Hypertension Asthma Home Medications ?Medication ?Instructions ?Recorded ?Last Taken ?Type atenolol 50 mg tablet 50 mg PO DAILY 06/04/21 11/14/24 History citalopram 20 mg tablet 20 mg PO DAILY 06/04/21 11/14/24 History montelukast 10 mg tablet 10 mg PO QHS 06/04/21 11/13/24 History (Singulair) pantoprazole 40 mg tablet,delayed 40 mg PO DAILY 06/04/21 11/14/24 History release (Protonix) triamterene 37.5 1 cap PO DAILY #0 caps 06/04/21 11/14/24 Rx mg-hydrochlorothiazide 25 mg capsule atorvastatin 20 mg tablet 20 mg PO QHS cholesterol 06/27/24 11/13/24 History nitrofurantoin macrocrystal 100 mg 100 mg PO DAILY 06/27/24 11/14/24 History capsule acetaminophen 650 mg 650 mg PO Q12H PRN pain 11/14/24 Unknown History tablet,extended release (Tylenol 8 Hour) albuterol sulfate 2.5 mg/0.5 mL 2.5 mg (0.5 mL) inhalation Q4H PRN 11/14/24 Unknown Rx solution for nebulization bronchospasm #30 ea albuterol sulfate 90 mcg/actuation 2 puff inhalation Q4H PRN 11/14/24 Unknown History aerosol inhaler shortness of breath or wheezing ascorbic acid (vitamin C) 250 mg 750 mg PO DAILY 11/14/24 11/14/24 History tablet cholecalciferol (vitamin D3) 250 250 mcg PO DAILY 11/14/24 11/14/24 History mcg (10,000 unit) capsule ipratropium 0.5 mg-albuterol 3 mg 3 ml inhalation Q20M PRN wheezing 11/14/24 Unknown Rx (2.5 mg base)/3 mL nebulization #90 mL soln prednisone 20 mg tablet 20 mg PO BID #10 tabs 11/14/24 Unknown Rx vitamin C 500 mg-multivitamin with 1 tab PO DAILY 11/14/24 11/14/24 History minerals chewable tablet (Emergen-C) Allergy/AdvReac Type Severity Reaction Status Date / Time prednisone AdvReac Other Verified 11/14/24 10:52 Surgical History History of cholecystectomy Social History Smoking Status: Never smoker ROS ROS ED Review of Systems ROS Unobtainable: other Constitutional Constitutional ED: Reports lethargy; Denies chills, fever(s), sweats or weight loss Eyes Eyes: Denies blurry vision, change in vision or diplopia ENT ENT ED: Denies rhinorrhea or sore throat Cardiovascular Cardiovascular: Denies chest pain, orthopnea or racing heartbeat Respiratory/Chest Respiratory/Chest: Reports cough, dyspnea and dyspnea on exertion; Denies orthopnea or sputum Gastrointestinal Gastrointestinal: Denies abdominal pain, diarrhea, nausea or vomiting Genitourinary Genitourinary ED: Denies dysuria, hematuria or urinary frequency Musculoskeletal Musculoskeletal: Denies arthralgias, back pain, myalgias or neck pain Integumentary Denies abscess, Abrasions or rash Neurologic Neurologic: Denies headache(s) or weakness Psychiatric Psychiatric: Denies anxiety, depression or suicidal thoughts Endocrine Endocrinology: Denies polydipsia, polyphagia or polyuria Hematologic/Lymphatic Hematologic/Lymphatic: Denies easy bleeding, easy bruising or lymphadenopathy Allergic/Immunologic Allergic/Immunologic ED: Denies mouth swelling, tongue swelling or urticaria EXAM Physical Exam Const Vital Signs: 11/14/24 10:52 11/14/24 11:28 11/14/24 11:52 Temperature 97.7 F L Temperature Source Oral Pulse Rate 58 L 74 Respiratory Rate 22 H 16 Respiratory Depth Respiratory Pattern Blood Pressure 141/70 H 134/60 H Blood Pressure Mean 93 84 Pulse Ox 97 98 Oxygen Delivery Method Room Air Room Air Room Air 11/14/24 11:55 11/14/24 12:11 Temperature 98.1 F Temperature Source Oral Pulse Rate 69 Respiratory Rate 16 Respiratory Depth Normal Respiratory Pattern Normal Blood Pressure 134/60 H Blood Pressure Mean 84 Pulse Ox 98 Oxygen Delivery Method Room Air Room Air Positive well nourished and well developed General Appearance ED: well developed and NAD HEENT Reports TM's clear and moist mucous membranes normocephalic and atraumatic; Negative for trauma or tenderness Tympanic Membrane ED: Yes TM's clear Eyes PERRL and EOMs intact bilaterally General Eye ED: Negative for pale conjunctiva or scleral icterus Neck no lymphadenopathy, supple and no JVD General: Negative for tenderness Chest Wall inspection of chest normal and palpation of chest normal Chest: Negative for tenderness Resp normal respiratory effort and clear to auscultation bilaterally Resp Narrative: Patient with some mild tachypnea. She has got expiratory wheezes bilaterally on exam. No accessory muscle use or retractions. Effort and Inspection: Negative for respiratory distress or pain with movement Auscultation: wheezes; Negative for rhonchi or diminished lung sounds Cardio regular rate, regular rhythm, S1 normal heart sound, S2 normal heart sound and no murmurs Peripheral Pulses: pulses 2+ throughout GI normal to inspection, nondistended, normoactive bowel sounds, soft to palpation, non-tender, non-distended and no masses Back/Spine no CVA tenderness and no thoracic nor lumbar tenderness Extremity normal to inspection General Extremety ED: Negative for edema General Extremity: Negative for edema Neuro oriented x3, CN's II-XII intact bilaterally, no sensory deficits noted and gait normal Sensorium / Orientation: awake, alert, oriented to person, oriented to place and oriented to time Motor Exam: strength 5/5 throughout and strength abnormal Psych mental status grossly normal Skin no rashes or lesions noted and no wounds MDM MDM MDM Narrative Medical decision making narrative: Patient presents to the emergency department with complaint of increased dyspnea over the course last month patient has history of asthma and remote history of PE and is currently not anticoagulated. She denies any chest pain. She does have a slight cough. On exam significant wheezing. IV line established. CBC with differential white count 9.1 with hemoglobin 14.3 and platelet count 201. Chemistries unremarkable. D-dimer was normal at 0.34. Patient was given DuoNeb aerosol and started on Solu-Medrol 125 mg IV. 1 view chest x-ray unremarkable. COVID flu and RSV were negative. Patient felt markedly improved after treatment. I suspect likely asthma exacerbation. Will write her prescription for albuterol as they do have a nebulizer at home. Will write for prednisone for 5 days. Advised to return if increased difficulty breathing or condition worsening way. Patient to follow-up with her back roll lathe operator. Lab Data Attestation: I reviewed the patient's lab results. Labs: Laboratory Results - last 24 hr 11/14/24 11:05 WBC 9.1 RBC 4.50 Hgb 14.3 Hct 42.9 MCV 95.3 MCH 31.8 MCHC 33.3 RDW Std Deviation 41.8 RDW Coeff of [place] 12.0 Plt Count 201 MPV 9.8 Immature Gran % (Auto) 0.100 Neut % (Auto) 41.5 L Lymph % (Auto) 31.6 [place] % (Auto) 7.8 Eos % (Auto) 18.0 H Baso % (Auto) 1.0 Absolute Neuts (auto) 3.8 Absolute Lymphs (auto) 2.87 Nucleated RBC % 0 D-Dimer Quant (PE/DVT) 0.34 Sodium 143 Potassium 3.8 Chloride 107 Carbon Dioxide 25.7 Anion Gap 10 BUN 17 Creatinine 0.90 Estim Creat Clear Calc 58.55 Est GFR (MDRD) Non-Af 67 BUN/Creatinine Ratio 19.0 Glucose 89 Calcium 9.4 Radiography Diagnostic Testin view chest x-ray obtained interpreted by myself as no evidence of infiltrate or pneumothorax or acute disease process. EKG Initial EKG: Attestation: I personally reviewed and interpreted this EKG as follows: Comments: Sinus rhythm with ventricular rate of 55 bpm with no acute ST segment changes Discharge Plan Triage Chief Complaint: Shortness of Breath ED Provider: Ramin Evangelista Dx/Rx/DC Orders Clinical Impression: Asthma exacerbation Instructions: Asthma Prescriptions: New ipratropium-albuterol 0.5 mg-3 mg(2.5 mg base)/3 mL solution for nebulization 3 ml inhalation Q20M PRN (Reason: wheezing) Qty: 90 0RF Rx Instructions: for 3 doses albuterol sulfate 2.5 mg/0.5 mL solution for nebulization 2.5 mg inhalation Q4H PRN (Reason: bronchospasm) Qty: 30 0RF prednisone 20 mg tablet 20 mg PO BID Qty: 10 0RF No Action pantoprazole [Protonix] 40 mg Tablet,Delayed Release (Dr/Ec) 40 mg PO DAILY montelukast [Singulair] 10 mg Tablet 10 mg PO QHS citalopram 20 mg Tablet 20 mg PO DAILY atenolol 50 mg Tablet 50 mg PO DAILY triamterene-hydrochlorothiazid 37.5-25 mg Capsule 1 cap PO DAILY Qty: 0 0RF Rx Instructions: Hold if systolic BP less than 100 atorvastatin 20 mg tablet 20 mg PO QHS nitrofurantoin macrocrystal 100 mg capsule 100 mg PO DAILY albuterol sulfate 90 mcg/actuation HFA aerosol inhaler 2 puff INHALATION Q4H PRN (Reason: shortness of breath or wheezing) cholecalciferol (vitamin D3) 250 mcg (10,000 unit) capsule 250 mcg PO DAILY ascorbic acid (vitamin C) 250 mg tablet 750 mg PO DAILY Emergen-C 500 mg tablet,chewable 1 tab PO DAILY acetaminophen [Tylenol 8 Hour] 650 mg tablet extended release 650 mg PO Q12H PRN (Reason: pain) Primary Care Provider: Ken Quarles Referrals: Ken Quarles MD [Primary Care Provider] - 3-5 Days Print Language: Tuvaluan Disposition Disposition: Home, Self Care
[2024-11-14] MEDS: MethylPREDNISolone 125 MG/2 ML Vial IV (11:29)
[2024-11-14 11:31] LABS: Absolute Lymphocyte Count 2.87 X10^3/uL (0.83-4.51); Absolute Neutrophil Count 3.8 X10^3/uL (2.0-7.7); Basophil# 0.09 X10^3/uL; Eosinophil# 1.63 X10^3/uL; Hematocrit 42.9 % (37-47); Hemoglobin 14.3 g/dL (12.0-15.0); Lymphocyte # 2.87 X10^3/ul (0.83-4.51); Lymphocyte % 31.6 % (19-41); Mean Corp Hgb Conc 33.3 g/dL (32-36); Mean Corpuscular Hgb 31.8 pg (27.0-32.0); Mean Corpuscular Volume 95.3 fL (81-99); Mean Platelet Vol. 9.8 fl (6.2-12.0); Monocyte# 0.71 X10^3/uL; Monocyte% 7.8 % (0-10); NRBC Flagged by Analyzer 0 % (0-5); Neutrophil # 3.77 X10^3/uL (2.7-7.7); Neutrophil % 41.5 % (47-70); Platelet Count 201 K/mm3 (150-450); RBC Distribution Width SD 41.8 fl (35.1-43.9); White Blood Count 9.1 K/mm3 (4.4-11.0)
[2024-11-14] MEDS: Ipratropium/Albuterol Sulfate 3 ML AMPUL.NEB INHALATION (11:45)
[2024-11-14] MEDS: Albuterol 2.5 MG/3 ML VIAL.NEB. INHALATION ×3 (11:45→11:52)
[2024-11-14 11:50] LABS: Anion Gap 10 (5-15); BUN 17 mg/dL (4-19); Calcium,Total 9.4 mg/dL (7.6-11.0); Carbon Dioxide 25.7 mmol/L (21.0-32.0); Chloride 107 mmol/L (98-108); EST Glomerular Filtration Rate 67 (>60); Estimated Creatinine Clearance 58.55 ml/min (50-250); Glucose 89 mg/dL (70-99); Potassium 3.8 mmol/L (3.3-5.1); Sodium Level 143 mmol/L (133-145)
[2024-11-14 11:51] LABS: D-Dimer Quantitative (DVT/PE) 0.34 FEU/ug/m (0.27-0.49)
[2024-11-14 11:52] VITALS: BP 134/60; PULSE 74; RESP 16; O2SAT 98
[2024-11-14 11:55] VITALS: BP 134/60; PULSE 69; RESP 16; TEMP 36.7; O2SAT 98
[2024-11-14 12:11] VITALS: O2SAT 98
--- NOTE | 2024-11-14 12:26 | RAD_ITS ---
PROCEDURE: CHEST 1 VIEW (PORTABLE) 11/14/2024 REASON FOR EXAM: DYSPNEA TECHNIQUE: Frontal view of the chest. COMPARISON: 09/11/2021. FINDINGS: The heart is normal in size. Mild vascular indistinctness and faint peripheral septal thickening (arrow) suggestive of mild edema. RAD/Chest 1 View (Portable) IMPRESSION: Findings suggestive of mild edema. Reading Location: [place] [id number]
[2024-11-14 13:00] VITALS: BP 136/70; PULSE 78; RESP 18; TEMP 37; O2SAT 93
[2024-11-14 13:18] VITALS: BP 136/70; PULSE 78; RESP 18; TEMP 37; O2SAT 93
== END 2024-11-14 13:19 | disposition home or self-care (01) ==
PROVIDERS: Emergency Provider Emergency Medicine; PCP Internal Medicine; Visit Provider Emergency Medicine
DX: J45.901 Unspecified asthma with (acute) exacerbation (principal); Z11.52 Encounter for screening for COVID-19; I10 Essential (primary) hypertension; K21.9 Gastro-esophageal reflux disease without esophagitis; G47.30 Sleep apnea, unspecified; F32.A Depression, unspecified; Z79.899 Other long term (current) drug therapy; Z86.711 Personal history of pulmonary embolism
CPT/HCPCS: 71045; 80048; 85025; 85379; 87631; 93005; 96374; 99284; A4216